=== PATIENT | female | born 1930 | race African-American/Black ===

== ENCOUNTER 2017-07-16 18:57 | Observation (INO) | payer OTHER ==
[2017-07-16] MEDS ORDERED: METOPROLOL TARTRATE 5 MG/5 ML INJ IV ONE ×2 (20:09→22:04)
[2017-07-16 20:17] LABS: Absolute Lymphocytes (CBC) 2.2 K/uL (0.7-4.9); Absolute Monocytes 0.4 K/uL (0.1-1.3); Absolute Neutrophil 2.9 K/uL (1.8-8.0); Basophils % 0.8 % (0-1.3); Eosinophils % 1.9 % (0-4.4); Hematocrit 39.4 % (36.0-45.0); Lymphocytes % 38.6 % (15.3-44.8); MCH 31.2 pg (27.0-35.0); MCV 90.9 fL (80-100); MPV 7.7 fL (7.6-11.3); Monocytes % 7.6 % (3.3-12.3); RBC Red Blood Cell Count 4.33 M/uL (3.86-4.86)
--- NOTE | 2017-07-16 20:23 | RAD REPORT ---
EXAM DESCRIPTION: Yoana Single View07/16/2017 8:03 pm CLINICAL HISTORY: Chest pain/technique cardia COMPARISON: no December 2016 FINDINGS: The lungs appear clear of acute infiltrate. The heart is mildly to moderately enlarged IMPRESSION: No acute abnormalities displayed
[2017-07-16 20:29] LABS: Potassium 3.7 mEq/L (3.6-5.0)
[2017-07-16 20:30] LABS: Magnesium 2.1 mg/dL (1.8-2.5)
[2017-07-16 20:36] LABS: Protime INR 1.07
[2017-07-16] MEDS ORDERED: ONDANSETRON 4 MG/2 ML VIAL IV PRN (20:47)
[2017-07-16] MEDS ORDERED: ACETAMINOPHEN 500 MG TAB PO PRN (20:47)
[2017-07-16] MEDS ORDERED: MORPHINE 2 MG/ML SYR IV PRN (20:47)
[2017-07-16] MEDS ORDERED: METOPROLOL TARTRATE 5 MG/5 ML INJ IV PRN (20:47)
[2017-07-16] MEDS ORDERED: METOPROLOL TAR 50 MG TAB PO SCH (21:00)
--- NOTE | 2017-07-16 21:41 | EDPHYS ---
Physician Documentation [facility] Name: Abida Arana Age: 86 yrs Sex: Female : 1930 Arrival Date: 07/16/2017 Time: 18:59 Bed 24 Private MD: ED Physician Derrell Cristina Historical: - Allergies: 07/16 19:03 Codeine; mb3 19:03 Sulfa (Sulfonamide Antibiotics); mb3 - PMHx: 19:03 Hypertension; Atrial Fib; Arthritis; mb3 - Immunization history:: Adult Immunizations up to date. - Social history:: Smoking status: Patient/guardian denies using tobacco. - Ebola Screening: : Patient denies exposure to infectious person Patient denies travel to an Ebola-affected area in the 21 days before illness onset No symptoms or risks identified at this time. Vital Signs: 19:12 BP 120 / 75; Pulse 128; Resp 18; Temp 98.6(O); Pulse Ox 99% on R/A; Weight 56.7 kg; mb3 Height 5 ft. 1 in. (154.94 cm); Pain 0/10; 20:23 BP 124 / 92; Pulse 113; Resp 18; Pulse Ox 98% on R/A; mb3 21:05 BP 137 / 85; Pulse 114; Resp 18; Pulse Ox 97% on R/A; Pain 0/10; mb3 19:12 Body Mass Index 23.62 (56.70 kg, 154.94 cm) mb3 MDM: 19:36 Patient medically screened. 07/16 19:38 Order name: Basic Metabolic Panel; Complete Time: 20:38 07/16 19:38 Order name: BNP 07/16 19:38 Order name: CBC with Diff; Complete Time: 20:38 07/16 19:38 Order name: Magnesium; Complete Time: 20:38 07/16 19:38 Order name: PT-INR 07/16 19:38 Order name: Troponin (emerg Dept Use Only); Complete Time: 20:38 07/16 19:38 Order name: XRAY Chest (1 view); Complete Time: 20:38 07/16 19:38 Order name: EKG; Complete Time: 19:39 07/16 19:47 Order name: Urine Dipstick--Ancillary (enter results) [facility] 07/16 20:55 Order name: CONS Pharmacy Consult [facility] 07/16 20:55 Order name: Troponin I [facility] 07/16 20:55 Order name: Troponin I [facility] 07/16 19:38 Order name: Cardiac monitoring; Complete Time: 19:40 07/16 19:38 Order name: EKG - Nurse/Tech; Complete Time: 19:39 07/16 19:38 Order name: IV Saline Lock; Complete Time: 20:16 07/16 19:38 Order name: Labs collected and sent; Complete Time: 20:16 07/16 19:38 Order name: O2 Per Protocol; Complete Time: 19:39 07/16 19:38 Order name: O2 Sat Monitoring; Complete Time: 19:39 07/16 19:38 Order name: Urine Dipstick-Ancillary (obtain specimen); Complete Time: 20:19 07/16 20:55 Order name: CONS Physician Consult [facility] 07/16 20:55 Order name: EKG Electrocardiogram [facility] 07/16 20:55 Order name: EKG Electrocardiogram [facility] Administered Medications: 20:02 Drug: Lopressor 5 mg Route: IVP; Site: right antecubital; mb3 23:10 Follow up: Response: No adverse reaction mb3 22:07 Drug: Lopressor 5 mg Route: IVP; Site: right antecubital; mb3 23:10 Follow up: Response: No adverse reaction mb3 Disposition: 07/16/17 21:40 Hospitalization ordered by Aggie Garrett for Inpatient Admission. Preliminary diagnosis is Paroxysmal atrial fibrillation. - Bed requested for Telemetry/MedSurg (Inpatient). - Status is Inpatient Admission. mb3 - Condition is Stable. - Problem is an acute exacerbation. - Symptoms have improved. UTI on Admission? No Addendum: 07/24/2017 11:53 Addendum: cc: PALPITATIONS hpi: ONSET DATE OF SERVICE, NO ASSOCIATED PAIN OR SOB JUST g s AFIB ACTING UP, SENT BY HOME HEALTH. HAS BEFORE WORSENED BY NOT TAKING MEDS, HAS BEEN OUT FOR A COUPLE OF DAYS. GOT FILLED BUT HAS NOT TAKEN pmh-REVIEWED AND AGREE ROS ALL REVIEWED AND NEGATIVE PE- GEN NO DISTRESS, ALERT hEENT NO MASS NO INJURY cV-IRR IRRR NO MURMUR P - LUNGS CLEAR NO RETRACTIONS. GI-SOFT NONTENDER NO MASS MS- NO DEFORMITY + PULSES SKIN - WARM NO RASH NEURO - NO ACUTE CHANGES CN MOTOR SENSORY NORMAL, MDM: CAD, VT, AFIB, CHF STUDIES REVIEWED PLAN ADMIT MILD IMPROVEMENT. CC - 30 MINUTES ADMIT TO CLARKE. 12:01 Addendum: EKG - RATE 128 IRR/IRR INTERVALS OK, NS ST CHANGES AB EKG. g s Signatures: Dispatcher [employer] EDMS Laurie Swann RN RN Derrell Cristina MD MD Connor Guzman RN RN mb3 Corrections: (The following items were deleted from the chart) 07/16 22:03 21:40 Hospitalization Ordered by Aggie Garrett MD for Inpatient Admission. Preliminary diagnosis is Paroxysmal atrial fibrillation. Bed requested for Telemetry/MedSurg (Inpatient). Status is Inpatient Admission. Condition is Stable. Problem is an acute exacerbation. Symptoms have improved. UTI on Admission? No. 23:14 22:03 07/16/2017 21:40 Hospitalization Ordered by Aggie Garrett MD for Inpatient mb3 Admission. Preliminary diagnosis is Paroxysmal atrial fibrillation. Bed requested for Telemetry/MedSurg (Inpatient). Status is Inpatient Admission. Condition is Stable. Problem is an acute exacerbation. Symptoms have improved. UTI on Admission? No.
--- NOTE | 2017-07-16 21:41 | ER ---
Nurse's Notes [facility] Name: Abida Arana Age: 86 yrs Sex: Female : 1930 Arrival Date: 07/16/2017 Time: 18:59 Bed 24 Private MD: Diagnosis: Paroxysmal atrial fibrillation Presentation: 07/16 19:00 Presenting complaint: Patient states: Was told by physical therapy that she had high mb3 heart rate so figured she should come up and get checked out. No c/o pain or discomfort. History of afib and has been out of her medication for 3 days. Just got it refilled today. Transition of care: patient was not received from another setting of care. Onset of symptoms is unknown. Risk Assessment: Do you want to hurt yourself or someone else? Patient reports no desire to harm self or others. Initial Sepsis Screen: Does the patient meet any 2 criteria? No. Patient's initial sepsis screen is negative. Does the patient have a suspected source of infection? No. Patient's initial sepsis screen is negative. Care prior to arrival: None. 19:00 Method Of Arrival: EMS: [facility] mb3 19:00 Acuity: MEGAN 3 mb3 Triage Assessment: 19:12 General: Appears in no apparent distress. comfortable, well groomed, Behavior is calm, mb3 cooperative, appropriate for age. Pain: Denies pain. EENT: No deficits noted. No signs and/or symptoms were reported regarding the EENT system. Neuro: No deficits noted. Level of Consciousness is awake, alert, obeys commands, Oriented to person, place, time, situation. Cardiovascular: Reports None Denies chest pain, Heart tones present Capillary refill < 3 seconds Pulses are palpable in right radial artery, right dorsalis pedis artery, left radial artery and left dorsalis pedis artery Rhythm is atrial fibrillation with rapid ventricular response. Respiratory: No deficits noted. Airway is patent Respiratory effort is even, unlabored, Respiratory pattern is regular, symmetrical, Breath sounds are clear bilaterally. GI: No signs and/or symptoms were reported involving the gastrointestinal system. Abdomen is flat, Bowel sounds present X 4 quads. : No signs and/or symptoms were reported regarding the genitourinary system. Musculoskeletal: No signs and/or symptoms reported regarding the musculoskeletal system. Capillary refill < 3 seconds. Historical: - Allergies: 19:03 Codeine; mb3 19:03 Sulfa (Sulfonamide Antibiotics); mb3 - PMHx: 19:03 Hypertension; Atrial Fib; Arthritis; mb3 - Immunization history:: Adult Immunizations up to date. - Social history:: Smoking status: Patient/guardian denies using tobacco. - Ebola Screening: : Patient denies exposure to infectious person Patient denies travel to an Ebola-affected area in the 21 days before illness onset No symptoms or risks identified at this time. Screenin:18 Abuse screen: Denies threats or abuse. Nutritional screening: No deficits noted. mb3 Tuberculosis screening: No symptoms or risk factors identified. Fall Risk None identified. Assessment: 19:18 Reassessment: see triage assessment. mb3 21:09 Reassessment: Patient appears in no apparent distress at this time. No changes from mb3 previously documented assessment. Patient and/or family updated on plan of care and expected duration. Pain level reassessed. Patient is alert, oriented x 3, equal unlabored respirations, skin warm/dry/pink. Patient denies pain at this time. Vital Signs: 19:12 BP 120 / 75; Pulse 128; Resp 18; Temp 98.6(O); Pulse Ox 99% on R/A; Weight 56.7 kg; mb3 Height 5 ft. 1 in. (154.94 cm); Pain 0/10; 20:23 BP 124 / 92; Pulse 113; Resp 18; Pulse Ox 98% on R/A; mb3 21:05 BP 137 / 85; Pulse 114; Resp 18; Pulse Ox 97% on R/A; Pain 0/10; mb3 19:12 Body Mass Index 23.62 (56.70 kg, 154.94 cm) mb3 ED Course: 18:59 Patient arrived in ED. mb3 19:00 Connor Guzman, RN is Primary Nurse. mb3 19:02 Triage completed. mb3 19:23 Derrell Cristina MD is Attending Physician. gs 19:32 EKG done, by ED staff, reviewed by Derrell Cristina MD. bb 20:01 XRAY Chest (1 view) In Process Unspecified. EDMS 20:19 Inserted saline lock: 22 gauge in right antecubital area, using aseptic technique. mb3 Blood collected. 20:20 Allergy band placed. occupational therapist home based on. Pulse ox on. NIBP on. Door closed. Diet: mb3 Patient given snack. Patient given juice. Patient given water. 21:39 Aggie Garrett MD is Hospitalizing Provider. gs 22:08 Arm band placed on right wrist. mb3 23:10 No provider procedures requiring assistance completed. Patient admitted, IV remains in mb3 place. Administered Medications: 20:02 Drug: Lopressor 5 mg Route: IVP; Site: right antecubital; mb3 23:10 Follow up: Response: No adverse reaction mb3 22:07 Drug: Lopressor 5 mg Route: IVP; Site: right antecubital; mb3 23:10 Follow up: Response: No adverse reaction mb3 Outcome: 21:40 Decision to Hospitalize by Provider. gs 23:11 Admitted to Tele accompanied by tech, family with patient, via stretcher, room 406, mb3 with chart, Report called to Rosalie Jin RN at 2237; SBAR used, all questions answered. 23:11 Condition: stable 23:11 Instructed on the need for admit. 23:14 Patient left the ED. mb3 Signatures: Dispatcher [employer] EDRenita Terry, RN RN Derrell Potter MD MD gs Barnett, Mark, RN RN mb3
[2017-07-16 22:34] LABS: Urine Blood NEGATIVE (NEG); Urine Glucose NEGATIVE (NEG); Urine Protein NEGATIVE (NEG); Urine Specific Gravity 1.025 (1.005-1.030); Urine pH 5.5 (5.0-7.0)
[2017-07-16] MEDS: NA CHLORIDE 0.9% 1,000 ML IV SCH (23:57)
[2017-07-17 00:34] VITALS: BMI 22.4
[2017-07-17] MEDS: ENOXAPARIN 60 MG/0.6 ML SQ SCH ×2 (01:01→09:00)
[2017-07-17] MEDS: METOPROLOL TARTRATE 5 MG/5 ML INJ IV SCH ×3 (02:00→02:10)
[2017-07-17] MEDS ORDERED: CETIRIZINE HCL 5 MG TABLET PO PRN (06:05)
[2017-07-17 06:30] LABS: Absolute Lymphocytes (CBC) 2.2 K/uL (0.7-4.9); Absolute Monocytes 0.4 K/uL (0.1-1.3); Absolute Neutrophil 2.5 K/uL (1.8-8.0); Basophils % 0.9 % (0-1.3); Eosinophils % 1.9 % (0-4.4); Hematocrit 36.3 % (36.0-45.0); Lymphocytes % 42.4 % (15.3-44.8); MCH 30.5 pg (27.0-35.0); MPV 8.5 fL (7.6-11.3); Monocytes % 7.6 % (3.3-12.3); RBC Red Blood Cell Count 3.99 M/uL (3.86-4.86)
--- NOTE | 2017-07-17 06:55 | EKG ---
Test Date: 2017-07-16 Test Time: 19:28:39 Overnight Babysitter: REJI MEASUREMENT RESULTS: Intervals: Rate: 107 TN: QRSD: 74 QT: 320 QTc: 427 [place]: P: TN: QRS: 50 T: -10 INTERPRETIVE STATEMENTS: Atrial fibrillation with rapid ventricular response Abnormal QRS-T angle, consider primary T wave abnormality Abnormal ECG Compared to ECG 03/06/2015 23:49:42 T-wave abnormality now present Sinus rhythm no longer present Electronically Signed On 07-17-17 06:55:06 CDT by Manjinder Jesus
[2017-07-17] MEDS: METOPROLOL TAR 50 MG TAB PO SCH ×2 (07:32→09:00)
[2017-07-17] MEDS ORDERED: Morphine 2 MG/2 ML SYR IV PRN (07:49)
[2017-07-17] MEDS ORDERED: MAGNESIUM OXIDE 400 MG TAB PO SCH (09:00)
[2017-07-17] MEDS ORDERED: AMLODIPINE 10 MG TAB PO SCH (09:00)
[2017-07-17] MEDS ORDERED: CARVEDILOL 12.5 MG TAB PO SCH (09:00)
[2017-07-17] MEDS ORDERED: POTASSIUM CL SA 10 MEQ TAB PO SCH (09:00)
--- NOTE | 2017-07-17 09:03 | P.HP ---
Certification for Inpatient Patient admitted to: Inpatient With expected LOS: >2 Midnights Patient will require the following post-hospital care: None Practitioner: I am a practitioner with admitting privileges, knowledge of patient current condition, hospital course, and medical plan of care. Services: Services provided to patient in accordance with Admission requirements found in Title 42 Section 412.3 of the Code of Federal Regulations Patient History Date of Service: 07/16/17 Reason for admission: Atrial fib patient with rapid ventricular response History of Present Illness: Patient is an 86-year-old female came into the hospital with shortness of breath. Patient was found have atrial fibrillation with rapid ventricular response. Patient has not been taking her medicines for the last 2-3 days since she was feeling well. She sees Cardiology, Dr. Ruiz, in [place], [place]. She has been following up at least once a year. States she was found have atrial fibrillation and has been put on medication. She does not know the name of the medicine but she has not taken it for the last few days. At this time will go ahead and resume her medications and start her on anti coagulation with Eliquis. Her rate is better controlled. She should be stable for discharge in the morning. Will discuss with our Cardiology & get an echocardiogram prior to discharge. Allergies codeine [Codeine] Adverse Reaction (Intermediate, Verified 11/29/11 16:23) NAUSEA/DIZZY Sulfa (Sulfonamide Antibiotics) [Sulfa(Sulfonamide Antibiotics)] Adverse Reaction (Intermediate, Verified 11/29/11 16:24) NAUSEA/DIZZY codeine Allergy (Uncoded 01/31/14 23:12) Unknown SULFA (SULFONAMIDES) Allergy (Uncoded 01/31/14 23:12) Unknown Home Medications: Magnesium Oxide [Mag 0X*] 400 mg PO DAILY 01/30/14 Valsartan/Hydrochlorothiazide [Valsartan-Hctz 320-25 mg Tab] 1 each PO DAILY 10/06 Amlodipine Besylate 10 mg PO DAILY 07/17/17 Carvedilol [Coreg] 12.5 mg PO BID 07/17/17 Cetirizine HCl [Zyrtec] 10 mg PO DAILYPRN PRN 07/17/17 Hydralazine [Apresoline*] 50 mg PO TID 07/17/17 Potassium Chloride [Klor-Con Sprinkle] 2 cap PO DAILY 07/17/17 Ranolazine [Ranexa] 500 mg PO BID 07/17/17 - Past Medical/Surgical History Has patient received pneumonia vaccine in the past: No Diabetic: Yes -: borderline diabetic -: Afib -: hypertension -: Arthritis -: Hand sx left hand x 2 -: tubal ligation -: D&C -: hemmorhoid sx - Family History Mother Medical History: Hypertension, Kidney disease Father Medical History: Heart disease, Kidney disease, Other (see notes) Notes: prostrate problems - Social History Smoking Status: Former smoker Alcohol use: No CD- Drugs: No Caffeine use: No Place of Residence: Home Review of Systems 10-point ROS is otherwise unremarkable Physical Examination - Vital Signs Temperature: 98.5 F Blood Pressure: 113/74 Pulse: 108 Respirations: 18 Pulse Ox (%): 96 - Physical Exam General: Alert, In no apparent distress, Oriented x3 HEENT: Atraumatic, PERRLA, Mucous membr. moist/pink, EOMI, Sclerae nonicteric Neck: Supple, 2+ carotid pulse no bruit, No LAD, Without JVD or thyroid abnormality Respiratory: Clear to auscultation bilaterally, Normal air movement Cardiovascular: Normal S1 S2, No murmurs, Irregular heart rate/rhythm Gastrointestinal: Normal bowel sounds, Soft and benign, Non-distended, No tenderness Musculoskeletal: No clubbing, No swelling, No tenderness Integumentary: No rashes Neurological: Normal gait, Normal speech, Normal strength at 5/5 x4 extr, Normal tone, Sensation intact, Cranial nerves 3-12 intact, Normal affect Lymphatics: No axilla or inguinal lymphadenopathy - Studies Laboratory Data (last 24 hrs) 07/16/17 20:03: PT 12.6 H, INR 1.07 07/16/17 20:03: WBC 5.7, Hgb 13.5, Hct 39.4, Plt Count 215 07/16/17 20:03: B-Natriuretic Peptide 598 H 07/16/17 20:03: Sodium 140, Potassium 3.7, BUN 25 H, Creatinine 1.01 H, Glucose 116, Magnesium 2.1 Assessment & Plan - Problems (Diagnosis) (1) Atrial fibrillation with RVR Current Visit: Yes Status: Acute (2) Shortness of breath Current Visit: Yes Status: Acute (3) Chest pain Onset Date: 04/04/14 Current Visit: No Status: Acute (4) Diabetes mellitus Onset Date: 04/04/14 Current Visit: No Status: Acute (5) Hypertension Onset Date: 04/04/14 Current Visit: No Status: Acute - Plan Plan: 1. Continue medication for rate control 2. Gentle hydration 3. Anti coagulation 4. Echocardiogram 5. Cardiology consultation 6. Strict blood sugar and blood pressure control 7. Monitor labs closely and check thyroid studies 8. GI and DVT prophylaxis - Advance Directives Does patient have a Living Will: No Does patient have a Durable POA for Healthcare: No - Code Status/Comfort Care Code Status Assessed: Yes Code Status: Full Code Critical Care: No Time Spent Managing PTS Care (In Minutes): 50
[2017-07-17] MEDS: NA CHLORIDE 0.9% 1,000 ML IV SCH (10:20)
[2017-07-17 11:55] VITALS: BP 134/74; TEMP 98.6
--- NOTE | 2017-07-17 12:20 | CON ---
Date of Consultation: 07/17/2017 The patient was admitted to Dr. Garrett's service on 07/16/2017. I saw the patient on 07/17/2017. Reason For Consultation: Atrial fibrillation. History Of Present Illness: Ms. Arana is an 86-year-old black woman, who has no past cardiac histor y as far as we know. She states that she has been told to take a blood thinner in the past that is a spirin by Dr. Ruiz. So, she may have had some irregular heartbeat before, but she does not recall that. She was noted during physical therapy as an outpatient to have atrial fibrillation, asymptoma tic, brought to the emergency room. Denied PND, orthopnea, pedal edema, palpitations, or syncope. D enied any chest pain. She stated that she has not taken her medication for 3 days that includes a be ta-juwan. Allergies: SHE IS ALLERGIC TO CODEINE AND SULFA. Review of Systems: Negative. Social History: Negative. Family History: Negative. Medications: At home include Coreg, Norvasc, magnesium, Zyrtec, hydralazine, Ranexa, potassium, vals luis, hydrochlorothiazide. Past Medical History: Includes hypertension, possible coronary artery disease, and possible atrial f ibrillation. Physical Examination: General: Very pleasant, alert, oriented x3. No complaint. Vital Signs: Stable. Atrial fibrillation at a rate of 100. HEENT: Negative. Neck: Supple with no bruit. Chest: Clear. Cardiac exam: Revealed atrial fibrillation. Abdomen: Benign. Extremities: Revealed no clubbing, cyanosis, or edema. Diagnostic Data: Included troponin 0.11, BNP 598, otherwise negative. EKG showed atrial fibrillatio n. Chest x-ray is negative. Impression And Plan: Atrial fibrillation, possibly paroxysmal. I think that may have been secondary to stopping the beta-juwan for 3 days. I will resume Coreg 25 b.i.d. Continue the rest of the me dication. Echocardiogram is pending. The patient may be a good candidate for Eliquis or Xarelto, I will leave that up to Dr. Garrett. I am not concerned about elevation of troponin and BNP secondary to atrial fibrillation. Her blood pressure is well controlled. She is not having any symptoms from ana st pain standpoint. We will see what the echocardiogram shows, but she can go home whenever it is ok ay with Dr. Garrett on a higher dose of Coreg and an anticoagulant and no aspirin. She will follow up w alec Ruiz. MICHA/CLAYTON Voice ID: [id number] Report ID: [id number]
[2017-07-17 13:19] VITALS: O2SAT 97
--- NOTE | 2017-07-17 17:39 | ECHO ---
HEIGHT: 5 ft 2 in WEIGHT: 122 lb 9.6 oz DATE OF STUDY: 07/17/[address]: Manjinder Jesus MD 2-DIMENSIONAL: YES M.MODE: YES DOPPLER: YES COLOR FLOW: YES TDS: PORTABLE: DEFINITY: BUBBLE STUDY: DIAGNOSIS: ATRIAL FIBRILLATION CARDIAC HISTORY: CATHERIZATION: NO SURGERY: NO PROSTHETIC VALVE: NO PACEMAKER: NO MEASUREMENTS (cm) DIASTOLIC (NORMALS) SYSTOLIC (NORMALS) IVSd 1.2 (0.6-1.2) LA Diam 3.2 (1.9-4.0) LVEF 79% LVIDd 3.6 (3.5-5.7) LVIDs 1.9 (2.0-3.5) %FS 47% LVPWd 1.4 (0.6-1.2) Ao Diam 2.5 (2.0-3.7) 2 DIMENSIONAL ASSESSMENT: RIGHT ATRIUM: NORMAL LEFT ATRIUM: NORMAL RIGHT VENTRICLE: NORMAL LEFT VENTRICLE: LEFT VENTRICULAR HYPERTROPHY TRICUSPID VALVE: NORMAL MITRAL VALVE: MITRAL ANNULAR CALCIFICATION PULMONIC VALVE: NORMAL AORTIC VALVE: STENOTIC PERICARDIAL EFFUSION: NONE AORTIC ROOT: NORMAL LEFT VENTRICULAR WALL MOTION: NORMAL DOPPLER/COLOR FLOW: MILD AORTIC STENOSIS. AREA 1.8 CENTIMETERS SQUARED. MILD TRICUSPID REGURGITATION. COMMENTS: MILD AORTIC STENOSIS. AREA 1.8 CENTIMETERS SQUARED. MILD TRICUSPID REGURGITATION. NORMAL RIGHT VENTRICULAR SYSTOLIC PRESSURE. LEFT VENTRICULAR HYPERTROPHY. NORMAL EJECTION FRACTION. MITRAL ANNULAR CALCIFICATION. TECHNOLOGIST: ROBERT CHINO
--- NOTE | 2017-07-17 17:39 | EKG ---
Test Date: 2017-07-17 Test Time: 08:38:54 Lyric Writer: BOBBY MEASUREMENT RESULTS: Intervals: Rate: 109 CO: QRSD: 72 QT: 320 QTc: 430 [place]: P: CO: QRS: 57 T: 38 INTERPRETIVE STATEMENTS: Atrial fibrillation with rapid ventricular response with premature ventricular or aberrantly conducted complexes Abnormal ECG Compared to ECG 07/16/2017 19:28:39 Ventricular premature complex(es) now present T-wave abnormality no longer present Electronically Signed On 07-17-17 17:37:01 CDT by Manjinder Jesus
--- NOTE | 2017-07-18 13:58 | P.DS ---
Discharge Date: 07/17/17 Disposition: ROUTINE DISCHARGE Discharge Condition: GOOD Reason for Admission: Atrial fib patient with rapid ventricular response Consultations: Cardiology - Problems (1) Atrial fibrillation with RVR Onset Date: 07/17/17 Status: Acute (2) Shortness of breath Onset Date: 07/17/17 Status: Acute (3) Chest pain Onset Date: 07/17/17 Status: Acute (4) Diabetes mellitus Onset Date: 07/17/17 Status: Acute (5) Hypertension Onset Date: 07/17/17 Status: Acute Brief History of Present Illness: Patient is an 86-year-old female came into the hospital with shortness of breath. Patient was found have atrial fibrillation with rapid ventricular response. Patient has not been taking her medicines for the last 2-3 days since she was feeling well. She sees Cardiology, Dr. Ruiz, in [place], [place]. She has been following up at least once a year. States she was found have atrial fibrillation and has been put on medication. She does not know the name of the medicine but she has not taken it for the last few days. At this time will go ahead and resume her medications and start her on anti coagulation with Eliquis. Her rate is better controlled. She should be stable for discharge in the morning. Will discuss with our Cardiology & get an echocardiogram prior to discharge. Hospital Course: Patient was started on beta-juwan and anticoagulation. Patient's clinical symptoms have improved. At this time patient is stable for discharge home with outpatient follow-up. Vital Signs/Physical Exam: Temp Pulse Resp BP Pulse Ox 98.6 F 74 18 134/74 97 07/17/17 11:54 07/17/17 11:54 07/17/17 11:54 07/17/17 11:54 07/17/17 11:54 General: Alert, In no apparent distress Respiratory: Clear to auscultation bilaterally, Normal air movement Cardiovascular: No murmurs, Irregular heart rate/rhythm Laboratory Data at Discharge: WBC 5.3 K/uL (4.3-10.9) 07/17/17 05:35 Hgb 12.2 g/dL (12.0-15.0) 07/17/17 05:35 Hct 36.3 % (36.0-45.0) 07/17/17 05:35 Plt Count 215 K/uL (152-406) 07/17/17 05:35 PT 12.6 SECONDS (9.5-12.5) H 07/16/17 20:03 INR 1.07 07/16/17 20:03 Sodium 140 mEq/L (135-145) 07/16/17 20:03 Potassium 3.7 mEq/L (3.6-5.0) 07/16/17 20:03 BUN 25 mg/dL (6-20) H 07/16/17 20:03 Creatinine 1.01 mg/dL (0.44-1.00) H 07/16/17 20:03 Glucose 116 mg/dL (65-120) 07/16/17 20:03 Magnesium 2.1 mg/dL (1.8-2.5) 07/16/17 20:03 Troponin I 0.14 ng/mL (<0.03) H 07/16/17 23:23 B-Natriuretic Peptide 598 pg/ml (<=100) H 07/16/17 20:03 Home Medications: Magnesium Oxide [Mag 0X*] 400 mg PO DAILY 01/30/14 Valsartan/Hydrochlorothiazide [Valsartan-Hctz 320-25 mg Tab] 1 each PO DAILY 10/06 Amlodipine Besylate 10 mg PO DAILY 07/17/17 Apixaban [Eliquis] 2.5 mg PO BID #60 tablet 07/17/17 Cetirizine HCl [Zyrtec*] 10 mg PO DAILYPRN PRN 07/17/17 Metoprolol Tartrate [Lopressor*] 50 mg PO BID #60 tab 07/17/17 Potassium Chloride [Klor-Con Sprinkle] 2 cap PO DAILY 07/17/17 Ranolazine [Ranexa] 500 mg PO BID 07/17/17 New Medications: Apixaban [Eliquis] 2.5 mg PO BID #60 tablet Metoprolol Tartrate [Lopressor*] 50 mg PO BID #60 tab Patient Discharge Instructions: OK TO DC IV AND DC HOME. FOLLOW-UP WITH PRIMARY CARE PROVIDER IN 1-2 WEEKS. FOLLOW-UP WITH CARDIOLOGY IN 1-2 WEEKS. RETURN TO THE ER IF symptoms worsens. CALL or TEXT DR. MIR AT [phone] IF ANY QUESTIONS REGARDING HOSPITAL STAY. PLEASE CALL THE FLOOR AT [phone] IF ANY MEDICATION OR NURSING QUESTIONS. Patient is advised to stop coreg Diet: AHA Activity: Fall precautions Time spent managing pt's care (in minutes): 30
== END 2017-07-17 12:36 | disposition home or self-care (01) ==
LOC: ER 18:57 → INTOOBSV 20:53 → ERHOLD 20:53 → 4TH 22:41
PROVIDERS: ADMIT Hospitalist; ATTEND Family Medicine
DX: I48.91 Unspecified atrial fibrillation (principal); E11.9 Type 2 diabetes mellitus without complications; R07.9 Chest pain, unspecified; I10 Essential (primary) hypertension; Z87.891 Personal history of nicotine dependence
CPT/HCPCS: 36415; 71045; 80048; 81003; 83735; 83880; 84484 ×2; 85025 ×2; 85610; 93005 ×2; 93306; 96374; 99285; G0378 ×2; J1650; J7030; J2270

== ENCOUNTER 2017-09-15 14:26 | Emergency (ER) | payer OTHER ==
[2017-09-15 15:25] LABS: Absolute Lymphocytes (CBC) 1.7 K/uL (0.7-4.9); Absolute Monocytes 0.5 K/uL (0.1-1.3); Absolute Neutrophil 2.9 K/uL (1.8-8.0); Basophils % 0.8 % (0-1.3); Eosinophils % 1.4 % (0-4.4); Hematocrit 39.6 % (36.0-45.0); Lymphocytes % 33.3 % (15.3-44.8); MCH 31.5 pg (27.0-35.0); MPV 8.4 fL (7.6-11.3); Monocytes % 8.9 % (3.3-12.3)
[2017-09-15] MEDS ORDERED: NA CHLORIDE 0.9% 500 ML ONE (15:34)
--- NOTE | 2017-09-15 15:37 | RAD REPORT ---
EXAM DESCRIPTION: RAD - Chest Single View - 09/15/2017 3:28 pm CLINICAL HISTORY: Dyspnea, tachycardia COMPARISON: July 16 TECHNIQUE: AP portable chest image was obtained 1524 hours . FINDINGS: No failure, infiltrate or mass. Lung markings are similar to the comparison study. Heart s ize is upper normal but stable. No acute vascular engorgement. Trachea is midline. No measurable pleu ral effusion and no pneumothorax. No gross bony abnormality seen. No acute aortic findings suspected. IMPRESSION: No acute cardiopulmonary process. No significant change from comparison.
[2017-09-15 15:42] LABS: Potassium 3.8 mmol/L (3.5-5.1)
[2017-09-15 16:32] LABS: Urine Bacteria <20 /HPF (<20); Urine Culture Reflex Order REFLEXED; Urine Mucus 1+ /HPF (NONE SEEN); Urine RBC <5 /HPF (NONE SEEN)
[2017-09-15 17:01] LABS: Urine Blood NEGATIVE (NEG); Urine Glucose NEGATIVE (NEG); Urine Protein 1+ (NEG)
[2017-09-15] MEDS ORDERED: Magnesium Sulfate 1gm IVPB 1 GM/50 ML BAG IV ONE (17:23)
[2017-09-15] MEDS ORDERED: POTASSIUM CL SA 10 MEQ TAB PO ONE (17:23)
[2017-09-15] MEDS ORDERED: METOPROLOL TAR 25 MG TAB ONE (17:33)
--- NOTE | 2017-09-15 17:57 | EKG ---
Test Date: 2017-09-15 Test Time: 14:49:42 Sports Manager: TABBY MEASUREMENT RESULTS: Intervals: Rate: 113 NH: QRSD: 74 QT: 328 QTc: 449 [place]: P: NH: QRS: 54 T: 21 INTERPRETIVE STATEMENTS: Atrial fibrillation with rapid ventricular response with premature ventricular or aberrantly conducted complexes Nonspecific T wave abnormality, probably digitalis effect Abnormal ECG Compared to ECG 07/17/2017 08:38:54 T-wave abnormality now present Electronically Signed On 09-15-17 17:56:36 CDT by Manjinder Jesus
--- NOTE | 2017-09-15 18:16 | EDPHYS ---
Physician Documentation [facility] Name: Abida Arana Age: 86 yrs Sex: Female : 1930 Arrival Date: 09/15/2017 Time: 14:36 Bed 15 Private MD: ED Physician Meet Ponce HPI: 09/15 16:21 This 86 yrs old Black Female presents to ER via Wheelchair with complaints of fast rn pulse. 16:21 The patient presents with a history of heart racing. Onset: The symptoms/episode rn began/occurred this morning. Duration: The patient or guardian reports a single episode, that is now resolved. Severity of symptoms: At their worst the symptoms were moderate in the emergency department the symptoms have improved. The patient has experienced similar episodes in the past. 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 Historical: - Allergies: 14:37 Codeine; aj 14:37 Sulfa (Sulfonamide Antibiotics); aj - Home Meds: 14:45 hydralazine 50 mg oral tab 1 tab three times per day [Active]; magnesium oxide 400 mg rb1 oral cap 400 mg daily [Active]; valsartan-hydrochlorothiazide 320-25 mg oral tab 1 tab once daily [Active]; potassium chloride 10 mEq oral TbER 2 tabs once daily [Active]; Eliquis 2.5 mg oral tab 1 tab 2 times per day [Active]; Ranexa 500 mg oral Tb12 1 tab 2 times per day [Active]; metoprolol tartrate 50 mg Oral tab 1 tab 2 times per day [Active]; amlodipine 10 mg tab 1 tab once daily [Active]; - PMHx: 14:37 Arthritis; Atrial Fib; Hypertension; aj - Immunization history:: Adult Immunizations up to date. - Social history:: Smoking status: Patient/guardian denies using tobacco. - Ebola Screening: : Patient negative for fever greater than or equal to 101.5 degrees Fahrenheit, and additional compatible Ebola Virus Disease symptoms Patient denies exposure to infectious person Patient denies travel to an Ebola-affected area in the 21 days before illness onset No symptoms or risks identified at this time. - Family history:: not pertinent. - Hospitalizations: : No recent hospitalization is reported. ROS: 16:21 Constitutional: Negative for fever, chills, and weight loss, Eyes: Negative for injury, rn pain, redness, and discharge, Neck: Negative for injury, pain, and swelling, Cardiovascular: Negative for chest pain, and edema, Respiratory: Negative for shortness of breath, cough, wheezing, and pleuritic chest pain, Abdomen/GI: Negative for abdominal pain, nausea, vomiting, diarrhea, and constipation, MS/Extremity: Negative for injury and deformity, Skin: Negative for injury, rash, and discoloration, Neuro: Negative for headache, weakness, numbness, tingling, and seizure. Exam: 16:21 Constitutional: This is a well developed, well nourished patient who is awake, alert, rn and in no acute distress. Head/Face: Normocephalic, atraumatic. Eyes: Pupils equal round and reactive to light, extra-ocular motions intact. Lids and lashes normal. Conjunctiva and sclera are non-icteric and not injected. Cornea within normal limits. Periorbital areas with no swelling, redness, or edema. ENT: dry MM Neck: Trachea midline, no thyromegaly or masses palpated, and no cervical lymphadenopathy. Supple, full range of motion without nuchal rigidity, or vertebral point tenderness. No Meningismus. Cardiovascular: irregular, normal rate Respiratory: Lungs have equal breath sounds bilaterally, clear to auscultation and percussion. No rales, rhonchi or wheezes noted. No increased work of breathing, no retractions or nasal flaring. Abdomen/GI: Soft, non-tender, with normal bowel sounds. No distension or tympany. No guarding or rebound. No evidence of tenderness throughout. MS/ Extremity: Pulses equal, no cyanosis. Neurovascular intact. Full, normal range of motion. Equal circumference. Neuro: Awake and alert, GCS 15, oriented to person, place, time, and situation. Cranial nerves II-XII grossly intact. Motor strength 5/5 in all extremities. Sensory grossly intact. Cerebellar exam normal. Normal gait. Vital Signs: 14:37 BP 123 / 83; Pulse 111; Resp 19; Temp 98.2; Pulse Ox 98% on R/A; Weight 56.7 kg; Height aj 5 ft. 1 in. (154.94 cm); 15:00 BP 122 / 76; Pulse 100; Resp 19; Pulse Ox 98% on R/A; Pain 0/10; rb1 16:00 BP 122 / 80; Pulse 100; Resp 12; Pulse Ox 99% on R/A; rb1 17:00 BP 132 / 82; Pulse 109; Resp 15; Pulse Ox 100% on R/A; Pain 0/10; rb1 18:00 BP 116 / 81; Pulse 101; Resp 14; Pulse Ox 99% ; rb1 18:40 BP 117 / 60; Pulse 90; Resp 20; Pulse Ox 98% on R/A; rb1 18:55 BP 117 / 60; Pulse 97; Resp 15; Pulse Ox 97% on R/A; Pain 0/10; rb1 14:37 Body Mass Index 23.62 (56.70 kg, 154.94 cm) aj MDM: 14:43 Patient medically screened. rn 16:21 ED course: states lives alone, decreased appetite because feels lonely, not drinking rn much water either. . 18:14 Differential diagnosis: arrythmia, dehydration. Data reviewed: vital signs, nurses rn notes, lab test result(s), EKG, radiologic studies, plain films, and as a result, I will discharge patient. Counseling: I had a detailed discussion with the patient and/or guardian regarding: the historical points, exam findings, and any diagnostic results supporting the discharge/admit diagnosis, lab results, radiology results, the need for outpatient follow up, to return to the emergency department if symptoms worsen or persist or if there are any questions or concerns that arise at home. Response to treatment: the patient's symptoms have markedly improved after treatment, the patient's condition has returned to base line, the patient is now symptom free, and as a result, I will discharge patient. Special discussion: I discussed with the patient/guardian in detail that at this point there is no indication for admission to the hospital. It is understood, however, that if the symptoms persist or worsen the patient needs to return immediately for re-evaluation. ED course: Pt feels much better, eating meal, HR< 100 now, will take only half of her metoprolol tonight since extra given here, is going to go home with daughter, and return precautions given and understood.. 09/15 14:52 Order name: CBC with Diff; Complete Time: 15:52 rn 09/15 14:52 Order name: Basic Metabolic Panel; Complete Time: 15:52 rn 09/15 14:52 Order name: Urine Microscopic Only; Complete Time: 17:11 rn 09/15 14:52 Order name: Troponin (emerg Dept Use Only); Complete Time: 15:52 rn 09/15 14:52 Order name: N-Terminal Pro-brain Natriuretic Peptide; Complete Time: 15:52 rn 09/15 16:33 Order name: Urine Culture EDMS 09/15 14:52 Order name: EKG; Complete Time: 14:53 rn 09/15 14:52 Order name: XRAY Chest (1 view); Complete Time: 15:52 rn 09/15 16:54 Order name: Urine Dipstick--Ancillary (enter results); Complete Time: 17:11 09/15 17:29 Order name: Diet Regular; Complete Time: 17:29 rn 09/15 14:52 Order name: IV Start; Complete Time: 16:23 rn 09/15 14:52 Order name: Urine Dipstick-Ancillary (obtain specimen); Complete Time: 16:24 rn 09/15 14:52 Order name: EKG - Nurse/Tech; Complete Time: 15:29 rn 09/15 17:35 Order name: EKG Electrocardiogram EDIA Administered Medications: 15:50 Drug: NS 0.9% 500 ml Route: IV; Rate: bolus; Site: right forearm; rb1 16:30 Follow up: IV Status: Completed infusion rb1 17:20 Drug: Potassium Chloride 20 mEq Route: PO; rb1 18:05 Follow up: Response: No adverse reaction rb1 17:20 Drug: Magnesium Sulfate 1 grams Route: IVPB; Infused Over: 1 hrs; Site: right forearm; rb1 18:28 Follow up: Response: No adverse reaction; IV Status: Completed infusion rb1 17:34 Drug: Metoprolol 25 mg Route: PO; rb1 18:04 Follow up: Response: No adverse reaction; pulse unchanged; provider notified rb1 Disposition: 09/15/17 18:15 Discharged to Home. Impression: Chronic atrial fibrillation, Dehydration. - Condition is Stable. - Discharge Instructions: Atrial Fibrillation, Dehydration, Adult. - Medication Reconciliation Form, Thank You Letter, Antibiotic Education, Prescription Opioid Use form. - Follow up: Private Physician; When: As needed; Reason: Recheck today's complaints, Re-evaluation by your physician. - Problem is new. - Symptoms have improved. Signatures: Dispatcher [employer] Shanon Mathias, RN Meet Low MD MD rn Barber, Rebecca, RN RN rb1 Corrections: (The following items were deleted from the chart) 19:07 18:15 09/15/2017 18:15 Discharged to Home. Impression: Chronic atrial fibrillation; rb1 Dehydration. Condition is Stable. Forms are Medication Reconciliation Form, Thank You Letter, Antibiotic Education, Prescription Opioid Use. Follow up: Private Physician; When: As needed; Reason: Recheck today's complaints, Re-evaluation by your physician. Problem is new. Symptoms have improved. rn
--- NOTE | 2017-09-15 18:16 | ER ---
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 Transition of aj care: patient was not received from another setting of care. Onset of symptoms was September 15, 2017. Risk Assessment: Do you want to hurt yourself or someone else? Patient reports no desire to harm self or others. Initial Sepsis Screen: Does the patient meet any 2 criteria? No. Patient's initial sepsis screen is negative. Does the patient have a suspected source of infection? No. Patient's initial sepsis screen is negative. Care prior to arrival: None. 14:36 Method Of Arrival: Wheelchair aj 14:36 Acuity: MEGAN 3 aj Triage Assessment: 14:37 General: Appears in no apparent distress. comfortable, Behavior is calm, cooperative, aj appropriate for age. Pain: Denies pain. Neuro: Level of Consciousness is awake, alert, obeys commands, Oriented to person, place, time, situation, Appropriate for age. Cardiovascular: Capillary refill < 3 seconds in bilateral fingers Patient's skin is warm and dry. Rhythm is sinus tachycardia. Respiratory: Airway is patent Respiratory effort is even, unlabored, Respiratory pattern is regular, symmetrical. Derm: Skin is intact, is healthy with good turgor, Skin is pink, warm \T\ dry. normal. Historical: - Allergies: 14:37 Codeine; aj 14:37 Sulfa (Sulfonamide Antibiotics); aj - Home Meds: 14:45 hydralazine 50 mg oral tab 1 tab three times per day [Active]; magnesium oxide 400 mg rb1 oral cap 400 mg daily [Active]; valsartan-hydrochlorothiazide 320-25 mg oral tab 1 tab once daily [Active]; potassium chloride 10 mEq oral TbER 2 tabs once daily [Active]; Eliquis 2.5 mg oral tab 1 tab 2 times per day [Active]; Ranexa 500 mg oral Tb12 1 tab 2 times per day [Active]; metoprolol tartrate 50 mg Oral tab 1 tab 2 times per day [Active]; amlodipine 10 mg tab 1 tab once daily [Active]; - PMHx: 14:37 Arthritis; Atrial Fib; Hypertension; aj - Immunization history:: Adult Immunizations up to date. - Social history:: Smoking status: Patient/guardian denies using tobacco. - Ebola Screening: : Patient negative for fever greater than or equal to 101.5 degrees Fahrenheit, and additional compatible Ebola Virus Disease symptoms Patient denies exposure to infectious person Patient denies travel to an Ebola-affected area in the 21 days before illness onset No symptoms or risks identified at this time. - Family history:: not pertinent. - Hospitalizations: : No recent hospitalization is reported. Screenin:45 Abuse screen: Denies threats or abuse. Nutritional screening: No deficits noted. rb1 Tuberculosis screening: No symptoms or risk factors identified. Fall Risk None identified. Assessment: 14:40 General: Appears in no apparent distress. comfortable, Behavior is calm, cooperative. rb1 Pain: Denies pain. Neuro: Level of Consciousness is awake, alert, obeys commands, Oriented to person, place, time, situation. Cardiovascular: Capillary refill < 3 seconds is brisk in bilateral fingers. Respiratory: Airway is patent Respiratory effort is even, unlabored, Respiratory pattern is regular, symmetrical. GI: No signs and/or symptoms were reported involving the gastrointestinal system. : No signs and/or symptoms were reported regarding the genitourinary system. Derm: Skin is dry, Skin is normal, Skin temperature is warm. 14:40 Pain: Denies pain Pain began 1 hour ago. rb1 15:38 Reassessment: Patient appears in no apparent distress at this time. Patient and/or rb1 family updated on plan of care and expected duration. Pain level reassessed. Patient is alert, oriented x 3, equal unlabored respirations, skin warm/dry/pink. Patient denies pain at this time. 16:24 Reassessment: Patient appears in no apparent distress at this time. No changes from rb1 previously documented assessment. Family at bedside. 17:23 Reassessment: Patient appears in no apparent distress at this time. Patient and/or rb1 family updated on plan of care and expected duration. Pain level reassessed. Patient is alert, oriented x 3, equal unlabored respirations, skin warm/dry/pink. 18:19 Reassessment: Patient appears in no apparent distress at this time. No changes from rb1 previously documented assessment. Discharge pending due to Magnesium infusing. Vital Signs: 14:37 BP 123 / 83; Pulse 111; Resp 19; Temp 98.2; Pulse Ox 98% on R/A; Weight 56.7 kg; Height aj 5 ft. 1 in. (154.94 cm); 15:00 BP 122 / 76; Pulse 100; Resp 19; Pulse Ox 98% on R/A; Pain 0/10; rb1 16:00 BP 122 / 80; Pulse 100; Resp 12; Pulse Ox 99% on R/A; rb1 17:00 BP 132 / 82; Pulse 109; Resp 15; Pulse Ox 100% on R/A; Pain 0/10; rb1 18:00 BP 116 / 81; Pulse 101; Resp 14; Pulse Ox 99% ; rb1 18:40 BP 117 / 60; Pulse 90; Resp 20; Pulse Ox 98% on R/A; rb1 18:55 BP 117 / 60; Pulse 97; Resp 15; Pulse Ox 97% on R/A; Pain 0/10; rb1 14:37 Body Mass Index 23.62 (56.70 kg, 154.94 cm) ED Course: 14:36 Patient arrived in ED. aj 14:37 Triage completed. aj 14:37 Arm band placed on left wrist. Patient placed in an exam room. aj 14:39 Georgette Mckenzie, RN is Primary Nurse. rb1 14:43 Meet Ponce MD is Attending Physician. rn 14:45 Patient has correct armband on for positive identification. Bed in low position. Call rb1 light in reach. Side rails up X 1. classroom monitor on. Pulse ox on. NIBP on. Warm blanket given. 14:45 Patient maintains SpO2 saturation greater than 95% on room air. rb1 14:56 EKG done, by technical sales engineer. reviewed by Meet Ponce MD. at1 15:15 Missed attempt(s): 22 gauge in right antecubital area. Labs were drawn and sent.. rb1 Bleeding controlled, band aid applied, catheter tip intact. 15:17 Radiology exam delayed due to IV insertion attempt and/or patient not having ag1 appropriate IV at this time. 15:25 X-ray completed. Portable x-ray completed in exam room. Patient tolerated procedure ag1 well. 15:25 XRAY Chest (1 view) In Process Unspecified. EDMS 15:30 Missed attempt(s): 22 gauge in right forearm. rb1 16:27 EKG done, by technical sales engineer. reviewed by Meet Ponce MD. sm3 18:55 No provider procedures requiring assistance completed. IV discontinued, intact, rb1 bleeding controlled, No redness/swelling at site. Pressure dressing applied. Administered Medications: 15:50 Drug: NS 0.9% 500 ml Route: IV; Rate: bolus; Site: right forearm; rb1 16:30 Follow up: IV Status: Completed infusion rb1 17:20 Drug: Potassium Chloride 20 mEq Route: PO; rb1 18:05 Follow up: Response: No adverse reaction rb1 17:20 Drug: Magnesium Sulfate 1 grams Route: IVPB; Infused Over: 1 hrs; Site: right forearm; rb1 18:28 Follow up: Response: No adverse reaction; IV Status: Completed infusion rb1 17:34 Drug: Metoprolol 25 mg Route: PO; rb1 18:04 Follow up: Response: No adverse reaction; pulse unchanged; provider notified rb1 Intake: Outcome: 18:15 Discharge ordered by . rn 18:55 Patient left the ED. rb1 18:55 Discharged to home ambulatory. rb1 18:55 Condition: stable 18:55 Discharge instructions given to patient, Instructed on discharge instructions, follow up and referral plans. Demonstrated understanding of instructions, follow-up care, Prescriptions given X none Addendum: 09/20/2017 16:13 Addendum: Culture Results: Positive urine culture. Phone call Attempt #1 No answer, No s s setup Certified letter sent to listed address for patient. Signatures: Dispatcher [employer] EDDE Shanon Magallon RN RN aj Nieto, Roman, MD MD rn Smirch, Shelby, RN RN ss gonzales, Amanda, quality facilitator EKG Tat1 Serenity Kaiser ag1 Georgette Mckenzie RN RN rb1 Carolin Puckett sm3 Corrections: (The following items were deleted from the chart) 09/15 16:26 16:00 BP 122 / 76; Pulse 100bpm; Resp 19bpm; Pulse Ox 98% RA; Pain 0/10; rb1 rb1 19:09 19:07 Patient left the ED. rb1 rb1
[2017-09-15 19:12] VITALS: TEMP 98.2
[2017-09-15 19:18] VITALS: BP 117/60; O2SAT 98
--- NOTE | 2017-09-16 06:49 | EKG ---
Test Date: 2017-09-15 Test Time: 16:16:42 Linking Machine Operator: DANITA MEASUREMENT RESULTS: Intervals: Rate: 101 [place]: QRSD: 78 QT: 330 QTc: 427 [place]: P: [place]: QRS: 44 T: 0 INTERPRETIVE STATEMENTS: Atrial fibrillation with rapid ventricular response with premature ventricular or aberrantly conducted complexes Nonspecific T wave abnormality, probably digitalis effect Abnormal ECG Compared to ECG 09/15/2017 14:49:42 No significant changes Electronically Signed On 09-16-17 06:48:35 CDT by Sukumar Walker
== END 2017-09-15 19:07 | disposition home or self-care (01) ==
LOC: ER 14:26
DX: E86.0 Dehydration (principal); I10 Essential (primary) hypertension; Z88.2 Allergy status to sulfonamides; Z88.5 Allergy status to narcotic agent; Z79.02 Long term (current) use of antithrombotics/antiplatelets
CPT/HCPCS: 36415; 71045; 80048; 83880; 84484; 85025; 87086; 87088; 93005 ×2; J3475; 81003; 81015; 87077; 87186; 96361; 96365; 99285

== ENCOUNTER 2018-05-31 05:04 | Inpatient (IN) | payer OTHER ==
[2018-05-31 05:23] LABS: Absolute Lymphocytes (CBC) 2.8 K/uL (0.7-4.9); Absolute Monocytes 0.8 K/uL (0.1-1.3); Absolute Neutrophil 4.7 K/uL (1.8-8.0); Basophils % 1.2 % (0-1.3); Eosinophils % 1.5 % (0-4.4); Hematocrit 41.7 % (36.0-45.0); Lymphocytes % 32.5 % (15.3-44.8); MPV 8.5 fL (7.6-11.3); Monocytes % 9.1 % (3.3-12.3); RBC Red Blood Cell Count 4.47 M/uL (3.86-4.86)
[2018-05-31] MEDS ORDERED: LABETALOL 20 MG/4ML SYRINGE IV ONE (05:25)
[2018-05-31] MEDS ORDERED: METOPROLOL TARTRATE 5 MG/5 ML INJ IV ONE ×2 (05:32→05:53)
[2018-05-31 06:03] LABS: Protime INR 1.52
[2018-05-31 06:21] LABS: ALT/SGPT 57 U/L (12-78); AST/SGOT 54 U/L (15-37); Albumin 3.1 g/dL (3.4-5.0); Alkaline Phosphatase 87 U/L (45-117); BUN Blood Urea Nitrogen 26 mg/dL (7-18); Bicarbonate 22 mmol/L (21-32); Bilirubin Direct 0.2 mg/dL (0-0.2); Bilirubin Total 0.7 mg/dL (0.2-1.0); Glucose Level 157 mg/dL (74-106); Magnesium 2.2 mg/dL (1.8-2.4); NT PRO-BNP 7232 pg/mL (<450); Potassium 4.2 mmol/L (3.5-5.1); Sodium Level 140 mmol/L (136-145); Troponin (Emerg Dept Use Only) < 0.02 ng/mL (0.0-0.045)
--- NOTE | 2018-05-31 06:54 | ER ---
Nurse's Notes [facility] Name: Abida Arana Age: 87 yrs Sex: Female : 1930 Arrival Date: 05/31/2018 Time: 05:10 Bed 4 Private MD: Diagnosis: Atrial fibrillation and flutter;Systolic (congestive) heart failure Presentation: 05/31 04:57 Presenting complaint: Patient states: that she is having shortness of breath that has fc worsened over the last week. She was told last week that she had bronchitis and was given medications which she has since completed. Denies any chest pain. Transition of care: patient was not received from another setting of care. Onset of symptoms was May 24, 2018. Risk Assessment: Do you want to hurt yourself or someone else? Patient reports no desire to harm self or others. Initial Sepsis Screen: Does the patient meet any 2 criteria? RR > 20 per min. HR > 90 bpm. Yes Does the patient have a suspected source of infection? No. Patient's initial sepsis screen is negative. Care prior to arrival: None. 04:57 Method Of Arrival: EMS: [facility] 04:57 Acuity: MEGAN 2 fc Historical: - Allergies: 05:19 Codeine; 05:19 Sulfa (Sulfonamide Antibiotics); fc - Home Meds: 05:19 Eliquis 2.5 mg Oral tab 1 tab 2 times per day [Active]; Atrovent Inhl as needed fc [Active]; metformin 500 mg Oral Tb24 1 tab once daily [Active]; metoprolol tartrate 50 mg Oral tab 1 tab 3 times per day [Active]; prednisone 10 mg Oral tab once daily [Active]; cetirizine 10 mg oral tab 1 tab once daily [Active]; Ranexa 500 mg Oral Tb12 1 tab 2 times per day [Active]; losartan-hydrochlorothiazide 50-12.5 mg oral tab 1 tab once daily [Active]; magnesium oxide 400 mg Oral cap 400 mg daily [Active]; - PMHx: 05:19 Arthritis; Atrial Fib; Hypertension; Diabetes - NIDDM; fc - Immunization history:: Last tetanus immunization: up to date Flu vaccine is not up to date. - Social history:: Smoking status: Patient/guardian denies using tobacco, Patient/guardian denies using alcohol, street drugs. - Ebola Screening: : Patient negative for fever greater than or equal to 101.5 degrees Fahrenheit, and additional compatible Ebola Virus Disease symptoms Patient denies exposure to infectious person Patient denies travel to an Ebola-affected area in the 21 days before illness onset. Screenin:57 Abuse screen: Denies threats or abuse. Nutritional screening: No deficits noted. fc Tuberculosis screening: No symptoms or risk factors identified. 05:38 Fall Risk Total Balbuena Fall Scale indicates High Risk Score (45 or more points). Fall lp1 prevention measures have been instituted. Side Rails Up X 2 As available patient and family educated on Fall Prevention Program and Strategies. Assessment: 05:15 General: Appears in no apparent distress. Behavior is appropriate for age. Pain: Denies lp1 pain. Neuro: Level of Consciousness is awake, alert, obeys commands, Oriented to person, place, situation. Cardiovascular: Denies chest pain, Patient's skin is warm and dry. Rhythm is atrial fibrillation. Respiratory: Reports shortness of breath Airway is patent Respiratory effort is even, Respiratory pattern is tachypnea Breath sounds are clear bilaterally. Onset: The symptoms/episode began/occurred gradually, the patient has mild shortness of breath. GI: No signs and/or symptoms were reported involving the gastrointestinal system. : No signs and/or symptoms were reported regarding the genitourinary system. EENT: No signs and/or symptoms were reported regarding the EENT system. Derm: Skin is fragile, is thin, Skin is dry, Skin is normal. Musculoskeletal: Circulation, motion, and sensation intact. 06:46 Reassessment: Patient appears in no apparent distress at this time. No changes from ak1 previously documented assessment. bedside commode placed in pt room for pt comfort. 07:15 Reassessment: Dr Blake called, asking about pt status. Informed of meds given and sv recent vitals. ABG ordered. 07:45 General: Appears in no apparent distress. comfortable, Behavior is calm, cooperative, sv appropriate for age. Pain: Denies pain. Neuro: Level of Consciousness is awake, alert, obeys commands, Oriented to person, place, time, situation. Respiratory: Respiratory effort is even, unlabored, Respiratory pattern is tachypnea. Derm: Skin is pink, warm \T\ dry. 07:48 Reassessment: Dr Blake called and informed of the vitals, including BP and HR. Pt is sv asymptomatic. Medication ordered. 08:40 Reassessment: Patient appears in no apparent distress at this time. No changes from sv previously documented assessment. Patient and/or family updated on plan of care and expected duration. Pain level reassessed. Patient is alert, oriented x 3, equal unlabored respirations, skin warm/dry/pink. Dr Blake informed of the updated BP and HR, no order received. Vital Signs: 04:57 BP 197 / 153; Pulse 161; Resp 22; Temp 97.9(O); Pulse Ox 100% on R/A; Weight 54.43 kg fc (R); Height 5 ft. 1 in. (154.94 cm) (R); Pain 0/10; 05:26 BP 168 / 123; Pulse 137; Resp 22; Pulse Ox 98% on 2 lpm NC; ak1 05:40 BP 153 / 127; Pulse 142; Resp 30; Pulse Ox 98% on 2 lpm NC; lp1 05:45 Pulse 136; Resp 36; Pulse Ox 100% on 2 lpm NC; ak1 06:55 BP 132 / 102; Pulse 134; Resp 30; Temp 98.; Pulse Ox 98% on 2 lpm NC; ak1 07:30 BP 181 / 148; Pulse 144; Resp 34; Pulse Ox 99% on 2 lpm NC; sv 07:40 BP 179 / 149; Pulse 139 MON; Resp 30; Pulse Ox 99% on 2 lpm NC; sv 08:26 BP 169 / 120; Pulse 134; Resp 30; Pulse Ox 99% on 2 lpm NC; iw 08:40 BP 149 / 114; Pulse 129; Resp 28; Pulse Ox 99% on 2 lpm NC; sv 04:57 Body Mass Index 22.67 (54.43 kg, 154.94 cm) fc 07:40 A fib sv ED Course: 04:57 Arm band placed on Patient placed in an exam room, on a stretcher. fc 04:57 Patient has correct armband on for positive identification. Placed in gown. Bed in low fc position. Call light in reach. Side rails up X2. biology specimen technician on. Pulse ox on. NIBP on. 04:57 No provider procedures requiring assistance completed. fc 05:10 Patient arrived in ED. fc 05:11 Derrell Cristina MD is Attending Physician. gs 05:13 Triage completed. fc 05:15 Inserted saline lock: 22 gauge in right antecubital area, using aseptic technique. lp1 Blood collected. 05:22 X-ray completed. Portable x-ray completed in exam room. Patient tolerated procedure kw well. 05:23 XRAY Chest (1 view) In Process Unspecified. EDMS 05:36 Elba Brown, RN is Primary Nurse. lp1 06:52 Jazlyn Blake MD is Hospitalizing Provider. gs 07:38 ABG drawn. by RT staff, on oxygen. sv 07:47 ABG Arterial Blood Gas Sent. sv 07:53 Primary Nurse role handed off by Elba Brown RN sv 07:53 Nanette Luevano RN is Primary Nurse. sv 08:36 Patient admitted, IV remains in place. intact. sv Administered Medications: 05:18 CANCELLED (Patient Refused): Labetalol 20 mg IVP once over 2 mins gs 05:25 Drug: Lopressor 5 mg Route: IVP; Site: right antecubital; ak1 06:44 Follow up: Response: No adverse reaction ak1 05:45 Drug: Lopressor 5 mg Route: IVP; Site: right antecubital; ak1 06:44 Follow up: Response: No adverse reaction ak1 06:53 Drug: Lasix 40 mg Route: IVP; Site: right antecubital; ak1 07:51 Follow up: Response: No adverse reaction sv 06:53 Drug: Sotalol 40 mg Route: PO; ak1 07:51 Follow up: Response: No adverse reaction sv 07:51 Drug: Sotalol 40 mg Route: PO; sv 08:30 Follow up: Response: No adverse reaction sv Outcome: 06:53 Decision to Hospitalize by Provider. gs 08:37 Admitted to ICU accompanied by nurse, accompanied by tech, family with patient, via sv stretcher, room 6, with oxygen, on monitor, with chart, Report called to Mary STANLEY 08:37 Condition: stable 08:37 Instructed on the need for admit. 08:54 Patient left the ED. sv Signatures: Dispatcher [employer] EDOH Nanette Luevano RN RN sv Chretien, Felicia, RN RN fc Williams, Irene, RN RN Araceli Au Elba Brown RN RN lp1 Arianne Claudio RN RN ak1 Derrell Cristina MD MD gs Corrections: (The following items were deleted from the chart) 05:38 05:15 Respiratory: Reports shortness of breath Airway is patent Respiratory effort is lp1 even, Respiratory pattern is tachypnea Breath sounds are clear bilaterally. lp1 07:53 07:40 BP 179 / 149; Pulse 139bpm; Monitor: A fibResp 34bpm; Pulse Ox 99% 2 lpm Nasal sv Cannula; sv
--- NOTE | 2018-05-31 06:54 | EDPHYS ---
Physician Documentation [facility] Name: Abida Arana Age: 87 yrs Sex: Female : 1930 Arrival Date: 05/31/2018 Time: 05:10 Bed 4 Private MD: ED Physician Derrell Cristina HPI: 05/31 05:16 This 87 yrs old Black Female presents to ER via EMS with complaints of Shortness Of gs Breath. 19:35 Onset: The symptoms/episode began/occurred acutely, 1 week(s) ago. Duration: The gs symptoms are continuous, and are steadily getting worse. Associated signs and symptoms: Pertinent negatives: chest pain. Severity of symptoms: At their worst the symptoms were severe in the emergency department the symptoms are unchanged. The patient has experienced similar episodes in the past, multiple times. Historical: - Allergies: 05:19 Codeine; fc 05:19 Sulfa (Sulfonamide Antibiotics); fc - Home Meds: 05:19 Eliquis 2.5 mg Oral tab 1 tab 2 times per day [Active]; Atrovent Inhl as needed fc [Active]; metformin 500 mg Oral Tb24 1 tab once daily [Active]; metoprolol tartrate 50 mg Oral tab 1 tab 3 times per day [Active]; prednisone 10 mg Oral tab once daily [Active]; cetirizine 10 mg oral tab 1 tab once daily [Active]; Ranexa 500 mg Oral Tb12 1 tab 2 times per day [Active]; losartan-hydrochlorothiazide 50-12.5 mg oral tab 1 tab once daily [Active]; magnesium oxide 400 mg Oral cap 400 mg daily [Active]; - PMHx: 05:19 Arthritis; Atrial Fib; Hypertension; Diabetes - NIDDM; fc - Immunization history:: Last tetanus immunization: up to date Flu vaccine is not up to date. - Social history:: Smoking status: Patient/guardian denies using tobacco, Patient/guardian denies using alcohol, street drugs. - Ebola Screening: : Patient negative for fever greater than or equal to 101.5 degrees Fahrenheit, and additional compatible Ebola Virus Disease symptoms Patient denies exposure to infectious person Patient denies travel to an Ebola-affected area in the 21 days before illness onset. ROS: 19:35 All other systems are negative. gs Exam: 06:41 ECG was reviewed by the Attending Physician. gs 19:35 Head/Face: Normocephalic, atraumatic. Eyes: Pupils equal round and reactive to light, gs extra-ocular motions intact. Lids and lashes normal. Conjunctiva and sclera are non-icteric and not injected. Cornea within normal limits. Periorbital areas with no swelling, redness, or edema. ENT: Nares patent. No nasal discharge, no septal abnormalities noted. Tympanic membranes are normal and external auditory canals are clear. Oropharynx with no redness, swelling, or masses, exudates, or evidence of obstruction, uvula midline. Mucous membranes moist. Neck: Trachea midline, no thyromegaly or masses palpated, and no cervical lymphadenopathy. Supple, full range of motion without nuchal rigidity, or vertebral point tenderness. No Meningismus. Chest/axilla: Normal chest wall appearance and motion. Nontender with no deformity. No lesions are appreciated. 19:35 Abdomen/GI: Soft, non-tender, with normal bowel sounds. No distension or tympany. No guarding or rebound. No evidence of tenderness throughout. Back: No spinal tenderness. No costovertebral tenderness. Full range of motion. Skin: Warm, dry with normal turgor. Normal color with no rashes, no lesions, and no evidence of cellulitis. MS/ Extremity: Pulses equal, no cyanosis. Neurovascular intact. Full, normal range of motion. Neuro: Awake and alert, GCS 15, oriented to person, place, time, and situation. Cranial nerves II-XII grossly intact. Motor strength 5/5 in all extremities. Sensory grossly intact. Cerebellar exam normal. Normal gait. 19:35 Constitutional: The patient appears alert, awake, in obvious distress, severely distressed. 19:35 Cardiovascular: Rate: tachycardic, Rhythm: irregularly irregular, Pulses: no pulse deficits are appreciated, Edema: is not appreciated. 19:35 Respiratory: mild respiratory distress is noted, Respirations: tachypnea, Breath sounds: rales, are located in both bases. Vital Signs: 04:57 BP 197 / 153; Pulse 161; Resp 22; Temp 97.9(O); Pulse Ox 100% on R/A; Weight 54.43 kg fc (R); Height 5 ft. 1 in. (154.94 cm) (R); Pain 0/10; 05:26 BP 168 / 123; Pulse 137; Resp 22; Pulse Ox 98% on 2 lpm NC; ak1 05:40 BP 153 / 127; Pulse 142; Resp 30; Pulse Ox 98% on 2 lpm NC; lp1 05:45 Pulse 136; Resp 36; Pulse Ox 100% on 2 lpm NC; ak1 06:55 BP 132 / 102; Pulse 134; Resp 30; Temp 98.; Pulse Ox 98% on 2 lpm NC; ak1 07:30 BP 181 / 148; Pulse 144; Resp 34; Pulse Ox 99% on 2 lpm NC; sv 07:40 BP 179 / 149; Pulse 139 MON; Resp 30; Pulse Ox 99% on 2 lpm NC; sv 08:26 BP 169 / 120; Pulse 134; Resp 30; Pulse Ox 99% on 2 lpm NC; iw 08:40 BP 149 / 114; Pulse 129; Resp 28; Pulse Ox 99% on 2 lpm NC; sv 04:57 Body Mass Index 22.67 (54.43 kg, 154.94 cm) fc 07:40 A fib sv MDM: 05:11 Patient medically screened. gs 19:35 Differential diagnosis: CHF exacerbation, Chronic Obstructive Pulmonary Disease gs Myocardial Infarction Pneumothorax. Data reviewed: vital signs, nurses notes, lab test result(s). Counseling: I had a detailed discussion with the patient and/or guardian regarding: the historical points, exam findings, and any diagnostic results supporting the discharge/admit diagnosis, the need for further work-up and treatment in the hospital. Response to treatment: the patient's symptoms have mildly improved after treatment, and as a result, I will admit patient. 05/31 05:12 Order name: Basic Metabolic Panel; Complete Time: 06:21 05/31 05:12 Order name: CBC with Diff; Complete Time: 06:01 05/31 05:12 Order name: LFT's; Complete Time: 06:21 05/31 05:12 Order name: Magnesium; Complete Time: 06:21 05/31 05:12 Order name: NT PRO-BNP; Complete Time: 06:21 gs 05/31 05:12 Order name: PT-INR; Complete Time: 06:21 05/31 05:12 Order name: Troponin (emerg Dept Use Only); Complete Time: 06:21 05/31 05:12 Order name: XRAY Chest (1 view) 05/31 07:27 Order name: Thyroid Stimulating Hormone EDNH 05/31 07:43 Order name: ABG Arterial Blood Gas [facility] 05/31 05:12 Order name: EKG; Complete Time: 05:12 05/31 05:12 Order name: Cardiac monitoring; Complete Time: 05:21 05/31 05:12 Order name: EKG - Nurse/Tech; Complete Time: 05:21 05/31 05:12 Order name: IV Saline Lock; Complete Time: 05:22 05/31 05:12 Order name: Labs collected and sent; Complete Time: 05:22 05/31 05:12 Order name: O2 Per Protocol; Complete Time: 05: 05/31 05:12 Order name: O2 Sat Monitoring; Complete Time: 05:22 05/31 07:27 Order name: CONS Physician Consult EDMS EC:41 Rate is 158 beats/min. Rhythm is irregularly irregular. QRS interval is normal. QT gs interval is normal. Q waves are Old. T waves are Flattened. Clinical impression: Atrial Fibrillation. Interpreted by me. Administered Medications: 05:18 CANCELLED (Patient Refused): Labetalol 20 mg IVP once over 2 mins gs 05:25 Drug: Lopressor 5 mg Route: IVP; Site: right antecubital; ak1 06:44 Follow up: Response: No adverse reaction ak1 05:45 Drug: Lopressor 5 mg Route: IVP; Site: right antecubital; ak1 06:44 Follow up: Response: No adverse reaction ak1 06:53 Drug: Lasix 40 mg Route: IVP; Site: right antecubital; ak1 07:51 Follow up: Response: No adverse reaction sv 06:53 Drug: Sotalol 40 mg Route: PO; ak1 07:51 Follow up: Response: No adverse reaction sv 07:51 Drug: Sotalol 40 mg Route: PO; sv 08:30 Follow up: Response: No adverse reaction sv Disposition: 19:35 Critical Care:. Disposition: 05/31/18 06:53 Hospitalization ordered by Jazlyn Blake for Inpatient Admission. Preliminary diagnosis are Atrial fibrillation and flutter, Systolic (congestive) heart failure. - Bed requested for Intensive Care Unit. - Status is Inpatient Admission. sv - Condition is Stable. - Problem is new. - Symptoms have improved. UTI on Admission? No Critical care time excluding procedures: 19:35 Critical care time: Bedside Care: 10 minutes, Consultation: 10 minutes, Family gs Intervention: 10 minutes. Total time: 30 minutes Signatures: Dispatcher [employer] EDMS Edilma Mireles Nanette Garcia RN RN Miriam Fontanez RN LIZETH Arianne Claudio RN RN [facility] Lynn Martínez RN RN df Starr, Gregory, MD MD Corrections: (The following items were deleted from the chart) 05:18 05:11 Labetalol 20 mg IVP once over 2 mins ordered. [facility] 07:29 06:53 Hospitalization Ordered by Jazlyn Blake MD for Inpatient Admission. Preliminary bd diagnosis is Atrial fibrillation and flutter; Systolic (congestive) heart failure. Bed requested for Telemetry/MedSurg (Inpatient). Status is Inpatient Admission. Condition is Stable. Problem is new. Symptoms have improved. UTI on Admission? No. gs 08:17 07:29 05/31/2018 06:53 Hospitalization Ordered by Jazlyn Blake MD for Inpatient df Admission. Preliminary diagnosis is Atrial fibrillation and flutter; Systolic (congestive) heart failure. Bed requested for Intensive Care Unit. Status is Inpatient Admission. Condition is Stable. Problem is new. Symptoms have improved. UTI on Admission? No. bd 08:18 08:17 05/31/2018 06:53 Hospitalization Ordered by Jazlyn Blake MD for Inpatient df Admission. Preliminary diagnosis is Atrial fibrillation and flutter; Systolic (congestive) heart failure. Bed requested for Intensive Care Unit. Status is Inpatient Admission. Condition is Stable. Problem is new. Symptoms have improved. UTI on Admission? No. df 08:54 08:18 05/31/2018 06:53 Hospitalization Ordered by Jazlyn Blake MD for Inpatient sv Admission. Preliminary diagnosis is Atrial fibrillation and flutter; Systolic (congestive) heart failure. Bed requested for Intensive Care Unit. Status is Inpatient Admission. Condition is Stable. Problem is new. Symptoms have improved. UTI on Admission? No. df
[2018-05-31] MEDS ORDERED: FUROSEMIDE 40 MG/4 ML VIAL ONE (07:00)
[2018-05-31] MEDS ORDERED: SOTALOL HCL 80 MG TAB ONE ×2 (07:00→08:01)
--- NOTE | 2018-05-31 08:28 | RAD REPORT ---
EXAM DESCRIPTION: RAD - Chest Single View - 05/31/2018 5:25 am CLINICAL HISTORY: Dyspnea, shortness of breath COMPARISON: August 2017 TECHNIQUE: AP portable chest image was obtained 0522 hours . FINDINGS: Moderate left-side and smaller right-sided pleural effusions are present. Infiltrate and/ or atelectasis present in each base. Vasculature is within normal limits. Heart size is probably norm al but is mostly obscured by the lung base findings. Interstitial markings overall are increased over baseline. No pneumothorax. No acute bony abnormality seen. No acute aortic findings suspected. IMPRESSION: Bilateral pleural effusions with lung base infiltrate and/ or atelectasis. Increased interstitial thickening or edema compared to August 2017 study. Patient shows a mixed pattern. This could be failure, bilateral pneumonia or a combination.
[2018-05-31] MEDS: INSULIN -REGULAR HUMAN 50 UNIT/0.5 ML ML SQ SCH ×4 (08:38→20:16)
[2018-05-31] MEDS ORDERED: ONDANSETRON 4 MG/2 ML VIAL IV PRN (08:38)
[2018-05-31 08:51] LABS: Arterial Blood Carboxyhemoglob 1.6 % (0-1.5); Blood Gas Oxyhemoglobin 91.7 % (94-97); Blood O2 Saturation 93.9 % (92-98.5)
[2018-05-31] MEDS ORDERED: FUROSEMIDE 40 MG/4 ML VIAL IV SCH (09:00)
[2018-05-31] MEDS: APIXABAN 2.5 MG TABLET PO SCH ×2 (11:05→20:16)
[2018-05-31] MEDS: LOSARTAN/HCTZ 50-12.5 PO SCH (11:05)
[2018-05-31] MEDS ORDERED: HYDRALAZINE HCL 20 MG/ML VIAL IV ONE ×2 (12:03→17:15)
[2018-05-31 14:39] LABS: Urine Appearance CLEAR; Urine Bilirubin NEGATIVE (NEG); Urine Blood TRACE (NEG); Urine Color YELLOW; Urine Glucose NEGATIVE (NEG); Urine Protein NEGATIVE (NEG); Urine pH 6.5 (5.0-7.0)
[2018-05-31 14:42] LABS: Urine Microscopic Reflex ORDER UMIC
[2018-05-31 14:56] LABS: Urine Bacteria <20 /HPF (<20); Urine Culture Reflex Order NOT NEEDED
--- NOTE | 2018-05-31 16:03 | CON ---
Chief Complaint: Shortness of breath. Reason For Consult: AFib. History Of Present Illness: Mrs. Arana seems to be quite confused and I think the main thing that w ent wrong is, was not taking her medicines appropriately. She cannot name her medicines or say what that for. Apparently, somebody gave her a medicine a few days ago at the [facility], she took s everal and ran out. When she was here in the hospital, her heart rate was in the 120s, rapid AFib. She has been in chronic AFib for the past several years. Takes Eliquis 2.[address] Ruiz. Heart rate control is with metoprolol. She has not had a cardioversion or other antiarrhyt hmic therapy before. The strategy has been rate control and anticoagulation. Physical Examination: General: The patient is awake. She is alert, but she is very confused, cannot remember things. She says she lives in a house alone and has some contact grandkids, I am not sure how much supervision t hey really give her. Lungs: Clear. Heart: Rate is elevated. Vital Signs: Most recent blood pressure is 170/119. Impression: We should re-establish therapy with metoprolol, not try to cardiovert her. I would not recommend giving Betapace in this case and anticoagulation with apixaban 2.5 b.i.d. as per recommenda tion. JUSTO Voice ID: [id number] Report ID: [id number]
--- NOTE | 2018-05-31 16:32 | P.HP ---
Certification for Inpatient Patient admitted to: Inpatient With expected LOS: >2 Midnights Patient will require the following post-hospital care: None Practitioner: I am a practitioner with admitting privileges, knowledge of patient current condition, hospital course, and medical plan of care. Services: Services provided to patient in accordance with Admission requirements found in Title 42 Section 412.3 of the Code of Federal Regulations Patient History Date of Service: 05/31/18 Primary Care Provider: Dr colón - Cardiology Reason for admission: afib with RVR History of Present Illness: 87 y/o F with Significant pmhx who presented to the ED with c.o Heart Palpation and SOB. Pt states for past 1 week she has been having viral illness and was seen by the [facility]. At the clinic she was prescribed Inhaler atrovent and Steroids for her viral Bronchitis. She took the medication as precribed however felt palpitation and SOB and thus presented to the ED. Pt has been poor historian and has not been able to care for self at home resulting in Medicatio non-compliance. She is seen routinely by Dr Colón in [place] for her afib. She has been on Eliquis and metoprolol for it as well. Denies any fever, chills or n.v at this time. 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 Allergies codeine [Codeine] Adverse Reaction (Intermediate, Verified 11/29/11 16:23) NAUSEA/DIZZY Sulfa (Sulfonamide Antibiotics) [Sulfa(Sulfonamide Antibiotics)] Adverse Reaction (Intermediate, Verified 11/29/11 16:24) NAUSEA/DIZZY Home Medications: Magnesium Oxide [Mag 0X*] 400 mg PO DAILY 01/30/14 Amlodipine Besylate 10 mg PO DAILY 07/17/17 Apixaban [Eliquis] 2.5 mg PO BID #60 tablet 07/17/17 Cetirizine HCl [Zyrtec*] 10 mg PO DAILYPRN PRN 07/17/17 Potassium Chloride [Klor-Con Sprinkle] 2 cap PO DAILY 07/17/17 Ranolazine [Ranexa] 500 mg PO BID 07/17/17 Losartan/Hydrochlorothiazide [Losartan-Hctz 50-12.5 mg Tab] 1 tab PO DAILY 05/31 Metformin ER [Glucophage ER*] 500 mg PO DAILY 05/31/18 Metoprolol Tartrate [Lopressor*] 50 mg PO TID 05/31/18 - Past Medical/Surgical History Has patient received pneumonia vaccine in the past: No Diabetic: Yes -: borderline diabetic -: Afib -: hypertension -: Arthritis -: Hand sx left hand x 2 -: tubal ligation -: D&C -: hemmorhoid sx - Family History Mother -: Hypertension, Kidney disease Father -: Heart disease, Kidney disease, Other (see notes) Notes: prostrate problems - Social History Smoking Status: Never smoker Alcohol use: No CD- Drugs: No Caffeine use: No Place of Residence: Home Review of Systems 10-point ROS is otherwise unremarkable Physical Examination - Vital Signs Temperature: 99.0 F Blood Pressure: 144/81 Pulse: 150 Respirations: 27 Pulse Ox (%): 98 - Physical Exam General: Alert, In no apparent distress, Oriented x2, Demented Respiratory: Clear to auscultation bilaterally, Normal air movement Cardiovascular: Normal S1 S2, Irregular heart rate/rhythm Gastrointestinal: Normal bowel sounds, No tenderness Musculoskeletal: No tenderness Integumentary: No rashes Neurological: Normal gait, Normal speech, Normal strength at 5/5 x4 extr, Normal tone, Normal affect Lymphatics: No axilla or inguinal lymphadenopathy - Studies Laboratory Data (last 24 hrs) 05/31/18 05:37: PT 17.7 H, INR 1.52 05/31/18 05:37: Sodium 140, Potassium 4.2, BUN 26 H, Creatinine 1.16, Glucose 157 H, Magnesium 2.2, Total Bilirubin 0.7, AST 54 H, ALT 57, Alkaline Phosphatase 87 05/31/18 05:10: WBC 8.5, Hgb 13.9, Hct 41.7, Plt Count 350 Assessment and Plan - Problems (Diagnosis) (1) Atrial fibrillation with RVR Onset Date: 07/17/17 Current Visit: No Status: Acute Plan: Afib with RVR with HR of 150-160 in ER -Given Sotalol x 2 in the ER for Irregular HR -Cardiology consulted. Appreciate Reccs -Restart on BB and Elquis for now -No Antiarrhythmics for now -Last ECHO in consistent with diastolic Dysfunction (2) CHF (congestive heart failure) Onset Date: 04/04/14 Current Visit: No Status: Chronic Plan: Chronic CHF with Diastolic Dysfuntion. -IV lasix 40mg x1 in the ER -Monitor UO and repeat Xray if improvement DC lasix Qualifiers: Heart failure type: diastolic Heart failure chronicity: chronic Qualified Code(s): I50.32 - Chronic diastolic (congestive) heart failure (3) Diabetes mellitus Onset Date: 07/17/17 Current Visit: No Status: Chronic Plan: ISS and Accu check Qualifiers: Diabetes mellitus type: type 2 Diabetes mellitus longterm insulin use: without longterm use Diabetes mellitus complication status: without complication Qualified Code(s): E11.9 - Type 2 diabetes mellitus without complications (4) Hypertension Onset Date: 07/17/17 Current Visit: No Status: Chronic Plan: Could be 2.2 to OTC cough Syrup vs afib -IV hydralazine x 1 in the ICU -Improvement in BP. Will monitor closely Qualifiers: Hypertension type: essential hypertension Qualified Code(s): I10 - Essential (primary) hypertension - Plan ADmit to the ICU for close monitoring for her Afib with RVR and Elevated HTN Discharge Plan: Home Plan to discharge in: 48 Hours - Advance Directives Does patient have a Living Will: No Does patient have a Durable POA for Healthcare: No - Code Status/Comfort Care Code Status Assessed: Yes Critical Care: Yes Time Spent Managing Pts Care (In Minutes): 45
[2018-05-31] MEDS ORDERED: SOTALOL HCL 80 MG TAB PO SCH (18:00)
--- NOTE | 2018-05-31 20:01 | RAD REPORT ---
EXAM DESCRIPTION: RAD - Chest Single View - 05/31/2018 7:52 pm CLINICAL HISTORY: R/O volume overload Chest pain. COMPARISON: Chest Single View dated 05/31/2018; Chest Single View dated 09/15/2017; Chest Single View d ated 07/16/2017; Chest Pa And Lat (2 Views) dated 01/20/2017 FINDINGS: Portable technique limits examination quality. Mild pulmonary edema noted. Bilateral pleural effusions are again seen, larger on the left, unchanged . The heart is moderately enlarged in size. Overall, findings appear essentially unchanged. IMPRESSION: Stable CHF versus volume overload pattern since comparative study.
[2018-05-31] MEDS ORDERED: METOPROLOL TAR 50 MG TAB PO SCH (21:00)
[2018-06-01] MEDS ORDERED: METOPROLOL TARTRATE 5 MG/5 ML INJ IV STA ×2 (01:27→06:34)
[2018-06-01 05:00] VITALS: BMI 20.3
[2018-06-01 05:32] LABS: Absolute Lymphocytes (CBC) 1.8 K/uL (0.7-4.9); Absolute Monocytes 0.7 K/uL (0.1-1.3); Absolute Neutrophil 3.5 K/uL (1.8-8.0); Basophils % 0.8 % (0-1.3); Eosinophils % 0.9 % (0-4.4); Hematocrit 41.9 % (36.0-45.0); Lymphocytes % 29.2 % (15.3-44.8); MPV 8.2 fL (7.6-11.3); Monocytes % 11.9 % (3.3-12.3); RBC Red Blood Cell Count 4.54 M/uL (3.86-4.86)
[2018-06-01 05:51] LABS: Albumin 2.8 g/dL (3.4-5.0); Bilirubin Total 0.8 mg/dL (0.2-1.0); Magnesium 2.2 mg/dL (1.8-2.4); Phosphorus 3.9 mg/dL (2.5-4.9); Protein, Total 6.3 g/dL (6.4-8.2)
[2018-06-01] MEDS: LORAZEPAM 0.5 MG TABLET PO ONE ×2 (06:36→06:45)
[2018-06-01] MEDS ORDERED: POTASSIUM CL SA 10 MEQ TAB PO ONE (07:06)
[2018-06-01] MEDS: INSULIN -REGULAR HUMAN 50 UNIT/0.5 ML ML SQ SCH ×4 (07:30→21:00)
[2018-06-01] MEDS: AMLODIPINE 10 MG TAB PO SCH (08:38)
[2018-06-01] MEDS: APIXABAN 2.5 MG TABLET PO SCH ×2 (08:39→21:40)
[2018-06-01] MEDS: METOPROLOL XL 100 MG TAB PO SCH ×2 (08:39→21:32)
[2018-06-01] MEDS: LOSARTAN/HCTZ 50-12.5 PO SCH (08:39)
--- NOTE | 2018-06-01 11:34 | EKG ---
Test Date: 2018-05-31 Test Time: 05:03:53 Recreation Therapy Director: LORI MEASUREMENT RESULTS: Intervals: Rate: 158 VT: QRSD: 54 QT: 292 QTc: 473 [place]: P: VT: QRS: 95 T: 106 INTERPRETIVE STATEMENTS: Atrial fibrillation with rapid ventricular response Rightward axis Septal infarct, age undetermined Abnormal ECG Compared to ECG 09/15/2017 16:16:42 Right-axis deviation now present Myocardial infarct finding now present Ventricular premature complex(es) no longer present T-wave abnormality no longer present Electronically Signed On 05-31-18 10:48:07 CDT by Sukumar Walker
--- NOTE | 2018-06-01 12:55 | PN ---
Ms. Arana feels fine. No chest pain or shortness of breath. Her heart rate is still in the 120s, s ometimes 130. She is in atrial fibrillation. We will increase the amount of beta-juwan she gets. I do not think this represents an acute coronary syndrome nor a reason to try and change her rhythm to sinus, but we need to get her heart rate under control, less than 100, hopefully. GABRIELA/CLAYTON Voice ID: [id number] Report ID: [id number]
--- NOTE | 2018-06-01 15:28 | P.PN ---
Subjective Date of Service: 06/01/18 Primary Care Provider: Dr colón - Cardiology Chief Complaint: afib with RVR Subjective: No C/O voiced, Tolerating diet, Improving, Doing well, Other (Rate down to 110-120) Review of Systems 10-point ROS is otherwise unremarkable Physical Examination - Vital Signs Temperature: 98.7 F Blood Pressure: 111/87 Pulse: 147 Respirations: 25 Pulse Ox (%): 98 - Physical Exam General: Alert, In no apparent distress Respiratory: Clear to auscultation bilaterally, Normal air movement Cardiovascular: Normal S1 S2, Irregular heart rate/rhythm Gastrointestinal: Normal bowel sounds, No tenderness Musculoskeletal: No tenderness Integumentary: No rashes Neurological: Normal speech, Normal tone, Normal affect Lymphatics: No axilla or inguinal lymphadenopathy - Studies Medications List Reviewed: Yes Assessment And Plan - Current Problems (Diagnosis) (1) Atrial fibrillation with RVR Onset Date: 07/17/17 Current Visit: No Status: Acute Plan: Afib with RVR with HR of 150-160 in ER -Given Sotalol x 2 in the ER for Irregular HR -Cardiology consulted. Appreciate Reccs -BB increased today and Elquis for anticoagulation -No Antiarrhythmics for now -Last ECHO in consistent with diastolic Dysfunction (2) CHF (congestive heart failure) Onset Date: 04/04/14 Current Visit: No Status: Chronic Plan: Chronic CHF with Diastolic Dysfuntion. -IV lasix 40mg x1 in the ER -Doing well. -On BB now Qualifiers: Heart failure type: diastolic Heart failure chronicity: chronic Qualified Code(s): I50.32 - Chronic diastolic (congestive) heart failure (3) Diabetes mellitus Onset Date: 07/17/17 Current Visit: No Status: Chronic Plan: ISS and Accu check Qualifiers: Diabetes mellitus type: type 2 Diabetes mellitus half-way insulin use: without half-way use Diabetes mellitus complication status: without complication Qualified Code(s): E11.9 - Type 2 diabetes mellitus without complications (4) Hypertension Onset Date: 07/17/17 Current Visit: No Status: Chronic Plan: Could be 2.2 to OTC cough Syrup vs afib -IV hydralazine x 2 in the ICU -Improvement in BP. Will monitor closely -Restarted on Home Medication Qualifiers: Hypertension type: essential hypertension Qualified Code(s): I10 - Essential (primary) hypertension - Plan Transfer the patient to the floor. Now with increased BB and decreased HR to 110 -120. Goal to be < 100. Will monitor for now Discharge Plan: Home Plan to discharge in: 48 Hours - Code Status/Comfort Care Code Status Assessed: Yes Critical Care: Yes Time Spent Managing PTS Care (In Minutes): 35
[2018-06-02 05:53] LABS: Absolute Lymphocytes (CBC) 2.6 K/uL (0.7-4.9); Absolute Monocytes 0.7 K/uL (0.1-1.3); Absolute Neutrophil 3.1 K/uL (1.8-8.0); Basophils % 1.1 % (0-1.3); Eosinophils % 1.5 % (0-4.4); Hematocrit 39.2 % (36.0-45.0); Lymphocytes % 39.5 % (15.3-44.8); MPV 7.8 fL (7.6-11.3); Monocytes % 10.9 % (3.3-12.3); RBC Red Blood Cell Count 4.23 M/uL (3.86-4.86)
[2018-06-02 06:12] LABS: Albumin 2.5 g/dL (3.4-5.0); Bilirubin Total 0.5 mg/dL (0.2-1.0); Magnesium 2.2 mg/dL (1.8-2.4); Phosphorus 3.7 mg/dL (2.5-4.9); Potassium 3.1 mmol/L (3.5-5.1); Protein, Total 5.7 g/dL (6.4-8.2)
[2018-06-02] MEDS ORDERED: POTASSIUM 25 MEQ EFFERV TAB PO ONE (06:33)
[2018-06-02] MEDS: INSULIN -REGULAR HUMAN 50 UNIT/0.5 ML ML SQ SCH ×3 (07:30→16:30)
[2018-06-02] MEDS: APIXABAN 2.5 MG TABLET PO SCH (08:47)
[2018-06-02] MEDS: METOPROLOL XL 100 MG TAB PO SCH (08:47)
[2018-06-02] MEDS: AMLODIPINE 10 MG TAB PO SCH (08:48)
[2018-06-02] MEDS: LOSARTAN/HCTZ 50-12.5 PO SCH (08:48)
[2018-06-02] MEDS ORDERED: METOPROLOL TAR 50 MG TAB PO SCH (15:10)
[2018-06-02] MEDS ORDERED: GLUCAGON 1 MG/VIAL IM PRN (15:11)
[2018-06-02] MEDS ORDERED: D50W 25 GM/50 ML SYRINGE IV PRN (15:11)
--- NOTE | 2018-06-02 17:17 | P.DS ---
Admission Date: 05/31/18 Discharge Date: 06/02/18 Primary Care Provider: Dr colón - Cardiology Disposition: ROUTINE DISCHARGE Discharge Condition: GOOD Reason for Admission: afib with RVR Consultations: Cardiology - Problems (1) Atrial fibrillation with RVR Onset Date: 07/17/17 Status: Acute (2) CHF (congestive heart failure) Onset Date: 04/04/14 Status: Chronic Qualifiers: Heart failure type: diastolic Heart failure chronicity: chronic Qualified Code(s): I50.32 - Chronic diastolic (congestive) heart failure (3) Diabetes mellitus Onset Date: 07/17/17 Status: Chronic Qualifiers: Diabetes mellitus type: type 2 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 Pt states for past 1 week she has been having viral illness and was seen by the [facility]. At the clinic she was prescribed Inhaler atrovent and Steroids for her viral Bronchitis. She took the medication as precribed however felt palpitation and SOB and thus presented to the ED. Pt has been poor historian and has not been able to care for self at home resulting in Medicatio non-compliance. She is seen routinely by Dr Colón in [place] for her afib. She has been on Eliquis and metoprolol for it as well. Denies any fever, chills or n.v at this time. 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 Hospital Course: Overall during the hospital stay patient in stable Patient was initially admitted to the hospital for AFib with RVR. Patient was given 2 doses of sotalol in the ER in an attempt to cardiovert her. Patient however was not able to be cardioverted and remain in AFib with RVR. Patient is was admitted to the ICU for further care. Cardiology was consulted. Cardiology reviewed patient case and stated that patient is chronically in atrial fibrillation and is not advisable to convert her with any anti arrhythmic medications. Cardiology recommended the patient be continued on beta -juwan that she takes at home. Patient's beta-juwan was increased however with cardiology recommendation to 100 mg b.i.d.. Patient's heart rate however still remained in 130-140 and thus it was increased to 150 mg b.i.d.. 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 Patient's heart rate remained between 1 tends to 140s while here in the hospital. Per cardiology patient can follow up with her christ[facility] tree farmer outpatient and since she is not symptomatic is stable to discharge home. If patient was returned to the ER again with similar complaints with symptomatic atrial fibrillation with RVR and attempt should be made to transfer the patient over to her cardiology at [facility] due to the chronic nature of her atrial fibrillation and continuity of care with her [facility] at [facility] Vital Signs/Physical Exam: Temp Pulse Resp BP Pulse Ox 98.1 F 143 H 18 116/78 96 06/02/18 12:00 06/02/18 15:50 06/02/18 12:00 06/02/18 15:50 06/02/18 00:00 General: Alert, In no apparent distress HEENT: Atraumatic, PERRLA, EOMI Neck: Supple, JVD not distended Respiratory: Clear to auscultation bilaterally, Normal air movement Cardiovascular: Normal S1 S2, Irregular heart rate/rhythm Gastrointestinal: Normal bowel sounds, No tenderness Musculoskeletal: No tenderness Integumentary: No rashes Neurological: Normal speech, Normal tone, Normal affect Lymphatics: No axilla or inguinal lymphadenopathy Laboratory Data at Discharge: WBC 6.5 K/uL (4.3-10.9) 06/02/18 05:34 Hgb 12.9 g/dL (12.0-15.0) 06/02/18 05:34 Hct 39.2 % (36.0-45.0) 06/02/18 05:34 Plt Count 306 K/uL (152-406) 06/02/18 05:34 PT 17.7 SECONDS (9.5-12.5) H 05/31/18 05:37 INR 1.52 05/31/18 05:37 Sodium 144 mmol/L (136-145) 06/02/18 05:34 Potassium 3.6 mmol/L (3.5-5.1) 06/02/18 13:35 BUN 20 mg/dL (7-18) H 06/02/18 05:34 Creatinine 1.00 mg/dL (0.55-1.3) 06/02/18 05:34 Glucose 111 mg/dL (74-106) H 06/02/18 05:34 Phosphorus 3.7 mg/dL (2.5-4.9) 06/02/18 05:34 Magnesium 2.2 mg/dL (1.8-2.4) 06/02/18 05:34 Total Bilirubin 0.5 mg/dL (0.2-1.0) 06/02/18 05:34 AST 16 U/L (15-37) 06/02/18 05:34 ALT 31 U/L (12-78) 06/02/18 05:34 Alkaline Phosphatase 68 U/L (45-117) 06/02/18 05:34 Home Medications: Magnesium Oxide [Mag 0X*] 400 mg PO DAILY 01/30/14 Amlodipine Besylate 10 mg PO DAILY 07/17/17 Apixaban [Eliquis *] 2.5 mg PO BID #60 tablet 07/17/17 Cetirizine HCl [Zyrtec*] 10 mg PO DAILYPRN PRN 07/17/17 Potassium Chloride [Klor-Con Sprinkle] 2 cap PO DAILY 07/17/17 Ranolazine [Ranexa] 500 mg PO BID 07/17/17 Losartan/Hydrochlorothiazide [Losartan-Hctz 50-12.5 mg Tab] 1 tab PO DAILY 05/31 Metoprolol Succinate [Toprol Xl*] 150 mg PO BID #90 tab 06/02/18 New Medications: Metoprolol Succinate [Toprol Xl*] 150 mg PO BID #90 tab Patient Discharge Instructions: Please f.u with PCP and Cardiology in 1 to 2 week post discharge. New medication. Metoprolol 150mg BID for now Diet: Regular Activity: Ad deidra Followup: Sukumar Walker MD [ACTIVE - CAN ADMIT] - 1 Week
[2018-06-02 17:52] VITALS: BP 114/80; TEMP 97; O2SAT 96
== END 2018-06-02 17:12 | disposition home or self-care (01) | DRG 309 ==
LOC: ER 05:04 → ERHOLD 07:26 → 3RD-ICU 08:33 → 2ND 06-01 17:55
PROVIDERS: ADMIT Family Medicine; ATTEND Family Medicine
DX: I48.2 Chronic atrial fibrillation (principal); I50.32 Chronic diastolic (congestive) heart failure; Z79.01 Long term (current) use of anticoagulants; I11.0 Hypertensive heart disease with heart failure; E11.9 Type 2 diabetes mellitus without complications; Z88.5 Allergy status to narcotic agent; Z88.2 Allergy status to sulfonamides; Z91.14 Patient's other noncompliance with medication regimen; M19.90 Unspecified osteoarthritis, unspecified site
CPT/HCPCS: 36415; 71045; 80048; 80053; 80076; 81003; 81015; 82805; 82962; 83735; 83880; 84100; 84132; 84443; 84484; 85025; 85610; 93005; 94760; 96374; 96375; 99285; J0360; J1940

== ENCOUNTER 2019-08-08 17:58 | Emergency (ER) | payer OTHER ==
--- NOTE | 2019-08-08 19:40 | ER ---
Nurse's Notes [facility] Name: Abida Arana Age: 88 yrs Sex: Female : 1930 Arrival Date: 08/08/2019 Time: 17:59 Bed 12 Private MD: Diagnosis: Cellulitis of finger Presentation: 08/07 18:40 Chief complaint: Patient states: thought something bit her left pinky finger, has iw gotten bigger over past week. Coronavirus screen: Proceed with normal triage. Patient denies a cough. Patient denies shortness of breath or difficulty breathing. Patient denies measured and/or subjective temperature greater than 100.4F prior to today's visit. Patient denies travel on a cruise ship or to a country the [facility] currently lists as an affected area. Patient denies contact with known and/or suspected case of COVID-19. Ebola Screen: Patient negative for fever greater than or equal to 101.5 degrees Fahrenheit, and additional compatible Ebola Virus Disease symptoms Patient denies exposure to infectious person. Patient denies travel to an Ebola-affected area in the 21 days before illness onset. No symptoms or risks identified at this time. Initial Sepsis Screen: Does the patient meet any 2 criteria? No. Patient's initial sepsis screen is negative. Does the patient have a suspected source of infection? No. Patient's initial sepsis screen is negative. Risk Assessment: Do you want to hurt yourself or someone else? Patient reports no desire to harm self or others. Onset of symptoms was August 01, 2019. 18:40 Method Of Arrival: Ambulatory iw 18:40 Acuity: MEGAN 4 iw Historical: - Allergies: 18:43 Codeine; iw 18:43 Sulfa (Sulfonamide Antibiotics); iw - Home Meds: 18:43 Atrovent Inhl as needed [Active]; cetirizine 10 mg Oral tab 1 tab once daily [Active]; iw Eliquis 2.5 mg Oral tab 1 tab 2 times per day [Active]; losartan-hydrochlorothiazide 50-12.5 mg Oral tab 1 tab once daily [Active]; magnesium oxide 400 mg Oral cap 400 mg daily [Active]; metformin 500 mg Oral Tb24 1 tab once daily [Active]; metoprolol tartrate 50 mg Oral tab 1 tab 3 times per day [Active]; prednisone 10 mg Oral tab once daily [Active]; Ranexa 500 mg Oral Tb12 1 tab 2 times per day [Active]; - PMHx: 18:43 Atrial Fib; Arthritis; Diabetes - NIDDM; Hypertension; iw - Immunization history:: Adult Immunizations up to date. - Social history:: Smoking status: . Screenin:30 Abuse screen: Denies threats or abuse. Denies injuries from another. Nutritional lp1 screening: No deficits noted. Tuberculosis screening: No symptoms or risk factors identified. Fall Risk None identified. Assessment: 19:55 General: Appears in no apparent distress. Behavior is calm, cooperative, appropriate lp1 for age. Pain: Complains of pain in dorsal aspect of middle phalanx of left little finger. Neuro: No deficits noted. Cardiovascular: Patient's skin is warm and dry. Respiratory: Respiratory effort is even, unlabored. GI: No signs and/or symptoms were reported involving the gastrointestinal system. : No signs and/or symptoms were reported regarding the genitourinary system. EENT: No signs and/or symptoms were reported regarding the EENT system. Derm: Skin is intact, Skin is dry, Skin is normal, Wound noted dorsal aspect of middle phalanx of left little finger Wound is black in color, no drainage noted. Musculoskeletal: No deficits noted. Vital Signs: 18:40 BP 130 / 78; Pulse 66; Resp 16; Temp 97.9; Pulse Ox 100% on R/A; iw ED Course: 17:59 Patient arrived in ED. bp1 18:42 Triage completed. iw 18:43 Arm band placed on. iw 19:13 Jack Spain MD is Attending Physician. tw4 19:29 Elif Shaw, RN is Primary Nurse. iw 19:30 Elba Brown, RN is Primary Nurse. lp1 19:31 Patient has correct armband on for positive identification. lp1 19:31 No provider procedures requiring assistance completed. Patient did not have IV access lp1 during this emergency room visit. Administered Medications: 19:54 Drug: Cleocin 300 mg Route: PO; lp1 19:54 Follow up: Response: Medication administered at discharge. lp1 Outcome: 19:39 Discharge ordered by . tw4 19:56 Discharged to home ambulatory. lp1 19:56 Condition: good 19:56 Discharge instructions given to patient, Instructed on discharge instructions, follow up and referral plans. medication usage, Demonstrated understanding of instructions, follow-up care, medications, Prescriptions given X 1. 19:57 Patient left the ED. lp1 Signatures: Elif Shaw RN RN iw Elba Brown RN RN lp1 Jack Spain MD MD tw4 Marielena Cox [facility]
--- NOTE | 2019-08-08 19:40 | EDPHYS ---
Physician Documentation [facility] Name: Abida Arana Age: 88 yrs Sex: Female : 1930 Arrival Date: 08/08/2019 Time: 17:59 Bed 12 Private MD: ED Physician Jack Spain HPI: 08/07 22:08 This 88 yrs old Black Female presents to ER via Ambulatory with complaints of Insect tw4 Bite. 22:08 The patient presents with cellulitis of the dorsal aspect of middle phalanx of left tw4 little finger, the patient presents with a swollen area of the dorsal aspect of middle phalanx of left little finger. Description: The affected area is small, well demarcated, tense. Onset: The symptoms/episode began/occurred 1 week(s) ago. Possible cause(s): unknown. Associated signs and symptoms: The patient has no apparent associated signs or symptoms. Modifying factors: the symptoms are alleviated by nothing, the symptoms are aggravated by nothing. The patient has not experienced similar symptoms in the past. Historical: - Allergies: 18:43 Codeine; iw 18:43 Sulfa (Sulfonamide Antibiotics); iw - Home Meds: 18:43 Atrovent Inhl as needed [Active]; cetirizine 10 mg Oral tab 1 tab once daily [Active]; iw Eliquis 2.5 mg Oral tab 1 tab 2 times per day [Active]; losartan-hydrochlorothiazide 50-12.5 mg Oral tab 1 tab once daily [Active]; magnesium oxide 400 mg Oral cap 400 mg daily [Active]; metformin 500 mg Oral Tb24 1 tab once daily [Active]; metoprolol tartrate 50 mg Oral tab 1 tab 3 times per day [Active]; prednisone 10 mg Oral tab once daily [Active]; Ranexa 500 mg Oral Tb12 1 tab 2 times per day [Active]; - PMHx: 18:43 Atrial Fib; Arthritis; Diabetes - NIDDM; Hypertension; iw - Immunization history:: Adult Immunizations up to date. - Social history:: Smoking status: . ROS: 22:08 Constitutional: Negative for fever, chills, and weight loss, Eyes: Negative for injury, tw4 pain, redness, and discharge, Cardiovascular: Negative for chest pain, palpitations, and edema, Respiratory: Negative for shortness of breath, cough, wheezing, and pleuritic chest pain, Abdomen/GI: Negative for abdominal pain, nausea, vomiting, diarrhea, and constipation, Skin: Negative for injury, rash, and discoloration, Neuro: Negative for headache, weakness, numbness, tingling, and seizure. 22:08 MS/extremity: Positive for tenderness. Exam: 22:08 Constitutional: This is a well developed, well nourished patient who is awake, alert, tw4 and in no acute distress. Head/Face: Normocephalic, atraumatic. Cardiovascular: Regular rate and rhythm with a normal S1 and S2. No gallops, murmurs, or rubs. Normal PMI, no JVD. No pulse deficits. Respiratory: Lungs have equal breath sounds bilaterally, clear to auscultation and percussion. No rales, rhonchi or wheezes noted. No increased work of breathing, no retractions or nasal flaring. Abdomen/GI: Soft, non-tender, with normal bowel sounds. No distension or tympany. No guarding or rebound. No evidence of tenderness throughout. Back: No spinal tenderness. No costovertebral tenderness. Full range of motion. Neuro: Awake and alert, GCS 15, oriented to person, place, time, and situation. Cranial nerves II-XII grossly intact. Motor strength 5/5 in all extremities. Sensory grossly intact. Cerebellar exam normal. Normal gait. 22:08 Musculoskeletal/extremity: Extremities: noted in the dorsal aspect of middle phalanx of left little finger: pain. Vital Signs: 18:40 BP 130 / 78; Pulse 66; Resp 16; Temp 97.9; Pulse Ox 100% on R/A; iw MDM: 19:33 Patient medically screened. tw4 22:08 Differential diagnosis: cellulitis. Data reviewed: vital signs, nurses notes. Data tw4 interpreted: Pulse oximetry: Interpretation: normal. Counseling: I had a detailed discussion with the patient and/or guardian regarding: the historical points, exam findings, and any diagnostic results supporting the discharge/admit diagnosis. Special discussion: I discussed with the patient/guardian in detail that at this point there is no indication for admission to the hospital. It is understood, however, that if the symptoms persist or worsen the patient needs to return immediately for re-evaluation. 22:17 ED course: Pt states that she will followup with her hand surgeon. No incision and tw4 drainage is necessary. Administered Medications: 19:54 Drug: Cleocin 300 mg Route: PO; lp1 19:54 Follow up: Response: Medication administered at discharge. lp1 Disposition: 08/08/19 19:39 Discharged to Home. Impression: Cellulitis of finger. - Condition is Stable. - Discharge Instructions: Cellulitis, Adult. - Prescriptions for Cleocin 300 mg Oral Capsule - take 1 capsule by ORAL route every 6 hours for 10 days; 40 capsule. - Medication Reconciliation Form, Thank You Letter, Antibiotic Education, Prescription Opioid Use form. - Follow up: Private Physician; When: Upon discharge from the Emergency Department; Reason: Recheck today's complaints, Continuance of care, Re-evaluation by your physician. - Problem is new. - Symptoms have improved. Signatures: Elif Shaw, RN RN iw Elba Brown RN RN lp1 Jack Spain MD MD tw4 Corrections: (The following items were deleted from the chart) 19:57 19:39 08/08/2019 19:39 Discharged to Home. Impression: Cellulitis of finger. Condition lp1 is Stable. Forms are Medication Reconciliation Form, Thank You Letter, Antibiotic Education, Prescription Opioid Use. Follow up: Private Physician; When: Upon discharge from the Emergency Department; Reason: Recheck today's complaints, Continuance of care, Re-evaluation by your physician. Problem is new. Symptoms have improved. tw4
[2019-08-08 20:06] VITALS: BP 130/78; TEMP 97.9; O2SAT 100
--- OUTSIDE RECORDS SUMMARY | 2019-08-08 20:11 | XMS REPORT | Continuity of Care Document ---
:1930 Author Organization [facility] t Address [address] [place] [address] Care Team Providers Name Role Phone Unavailable Unavailable Unavailable Problems This patient has no known problems. Allergies, Adverse Reactions, Alerts This patient has no known allergies or adverse reactions. Medications This patient has no known medications. Procedures This patient has no known procedures. Results This patient has no known results.
== END 2019-08-08 19:57 | disposition home or self-care (01) ==
LOC: ER 17:58
DX: L03.012 Cellulitis of left finger (principal); I10 Essential (primary) hypertension; E11.9 Type 2 diabetes mellitus without complications; I48.91 Unspecified atrial fibrillation; W57.XXXA Bitten or stung by nonvenomous insect and other nonvenomous arthropods, initial encounter; Y93.9 Activity, unspecified; Y92.9 Unspecified place or not applicable; Z79.01 Long term (current) use of anticoagulants; Z88.2 Allergy status to sulfonamides; Z88.5 Allergy status to narcotic agent
CPT/HCPCS: 99283

== ENCOUNTER 2019-09-08 03:08 | Observation (INO) | payer OTHER ==
--- OUTSIDE RECORDS SUMMARY | 2019-09-08 03:10 | XMS REPORT | Continuity of Care Document ---
:1930 Author Organization [facility] t Address [address] [place] [address] Care Team Providers Name Role Phone Unavailable Unavailable Unavailable Problems This patient has no known problems. Allergies, Adverse Reactions, Alerts This patient has no known allergies or adverse reactions. Medications This patient has no known medications. Procedures This patient has no known procedures. Results This patient has no known results.
[2019-09-08 03:48] LABS: Absolute Lymphocytes (CBC) 1.4 K/uL (0.7-4.9); Basophils % 0.4 % (0-1.3); Hematocrit 46.8 % (36.0-45.0); Lymphocytes % 13.3 % (15.3-44.8); MPV 8.2 fL (7.6-11.3); RBC Red Blood Cell Count 4.94 M/uL (3.86-4.86)
[2019-09-08 03:59] LABS: ALT/SGPT 26 U/L (12-78); AST/SGOT 25 U/L (15-37); Albumin 3.9 g/dL (3.4-5.0); Alkaline Phosphatase 90 U/L (45-117); BUN Blood Urea Nitrogen 18 mg/dL (7-18); Bicarbonate 27 mmol/L (21-32); Bilirubin Direct 0.1 mg/dL (0-0.2); Bilirubin Total 0.6 mg/dL (0.2-1.0); Glucose Level 224 mg/dL (74-106); Lipase 32 U/L (73-393); Magnesium 2.2 mg/dL (1.8-2.4); NT PRO-BNP 870 pg/mL (<450); Protein, Total 9.1 g/dL (6.4-8.2); Sodium Level 141 mmol/L (136-145); Troponin (Emerg Dept Use Only) < 0.02 ng/mL (0.0-0.045)
[2019-09-08 04:00] LABS: Potassium 2.9 mmol/L (3.5-5.1)
[2019-09-08] MEDS ORDERED: NA CHLORIDE 0.9% 1,000 ML ONE (04:16)
[2019-09-08] MEDS ORDERED: FENTANYL CITR 100 MCG/2 ML ONE (04:16)
[2019-09-08] MEDS ORDERED: ONDANSETRON 4 MG/2 ML VIAL ONE (04:17)
[2019-09-08] MEDS ORDERED: KCL 20 MEQ/100 mL IVPB 20 MEQ/100 ML BAG IV ONE ×2 (04:28→05:07)
--- NOTE | 2019-09-08 04:28 | EDPHYS ---
Physician Documentation [facility] Name: Abida Arana Age: 88 yrs Sex: Female : 1930 Arrival Date: 09/08/2019 Time: 03:08 Bed 7 Private MD: ED Physician Nirmal Miranda HPI: 09/07 03:19 This 88 yrs old Black Female presents to ER via EMS with complaints of Nausea/Vomiting. dmitry 03:19 The patient presents to the emergency department with nausea, vomiting, abdominal pain, dmitry of the right upper quadrant, left upper quadrant, right lower quadrant and left lower quadrant. Onset: The symptoms/episode began/occurred 1 day(s) ago. Possible causes: unknown. The symptoms are aggravated by nothing. The symptoms are alleviated by nothing. Associated signs and symptoms: The patient has no apparent associated signs or symptoms. Severity of symptoms: At their worst the symptoms were moderate in the emergency department the symptoms have improved mildly. The patient has not experienced similar symptoms in the past. Historical: - Allergies: 03:13 Codeine; mg2 03:13 Sulfa (Sulfonamide Antibiotics); mg2 - Home Meds: 03:13 Atrovent Inhl as needed [Active]; cetirizine 10 mg Oral tab 1 tab once daily [Active]; mg2 Eliquis 2.5 mg Oral tab 1 tab 2 times per day [Active]; losartan-hydrochlorothiazide 50-12.5 mg Oral tab 1 tab once daily [Active]; magnesium oxide 400 mg Oral cap 400 mg daily [Active]; metformin 500 mg Oral Tb24 1 tab once daily [Active]; metoprolol tartrate 50 mg Oral tab 1 tab 3 times per day [Active]; prednisone 10 mg Oral tab once daily [Active]; Ranexa 500 mg Oral Tb12 1 tab 2 times per day [Active]; - PMHx: 03:13 Arthritis; Atrial Fib; Diabetes - NIDDM; Hypertension; mg2 - Immunization history:: Flu vaccine is not up to date. - Social history:: Smoking status: Patient denies any tobacco usage or history of. Patient/guardian denies using alcohol, street drugs, IV drugs. - Family history:: not pertinent. ROS: 03:19 Constitutional: Negative for fever, chills, and weight loss, Eyes: Negative for injury, dmitry pain, redness, and discharge, ENT: Negative for injury, pain, and discharge, Neck: Negative for injury, pain, and swelling, Cardiovascular: Negative for chest pain, palpitations, and edema, Respiratory: Negative for shortness of breath, cough, wheezing, and pleuritic chest pain, Back: Negative for injury and pain, : Negative for injury, bleeding, discharge, and swelling, MS/Extremity: Negative for injury and deformity, Skin: Negative for injury, rash, and discoloration, Neuro: Negative for headache, weakness, numbness, tingling, and seizure, Psych: Negative for depression, anxiety, suicide ideation, homicidal ideation, and hallucinations, Allergy/Immunology: Negative for hives, rash, and allergies, Endocrine: Negative for neck swelling, polydipsia, polyuria, polyphagia, and marked weight changes, Hematologic/Lymphatic: Negative for swollen nodes, abnormal bleeding, and unusual bruising. 03:19 Abdomen/GI: Positive for abdominal pain, nausea and vomiting. Exam: 03:19 Constitutional: This is a well developed, well nourished patient who is awake, alert, dmitry and in no acute distress. Head/Face: Normocephalic, atraumatic. Eyes: Pupils equal round and reactive to light, extra-ocular motions intact. Lids and lashes normal. Conjunctiva and sclera are non-icteric and not injected. Cornea within normal limits. Periorbital areas with no swelling, redness, or edema. ENT: Nares patent. No nasal discharge, no septal abnormalities noted. Tympanic membranes are normal and external auditory canals are clear. Oropharynx with no redness, swelling, or masses, exudates, or evidence of obstruction, uvula midline. Mucous membranes moist. Neck: Trachea midline, no thyromegaly or masses palpated, and no cervical lymphadenopathy. Supple, full range of motion without nuchal rigidity, or vertebral point tenderness. No Meningismus. Chest/axilla: Normal chest wall appearance and motion. Nontender with no deformity. No lesions are appreciated. Cardiovascular: Regular rate and rhythm with a normal S1 and S2. No gallops, murmurs, or rubs. Normal PMI, no JVD. No pulse deficits. Respiratory: Lungs have equal breath sounds bilaterally, clear to auscultation and percussion. No rales, rhonchi or wheezes noted. No increased work of breathing, no retractions or nasal flaring. Back: No spinal tenderness. No costovertebral tenderness. Full range of motion. Female : Normal external genitalia. Skin: Warm, dry with normal turgor. Normal color with no rashes, no lesions, and no evidence of cellulitis. MS/ Extremity: Pulses equal, no cyanosis. Neurovascular intact. Full, normal range of motion. Neuro: Awake and alert, GCS 15, oriented to person, place, time, and situation. Cranial nerves II-XII grossly intact. Motor strength 5/5 in all extremities. Sensory grossly intact. Cerebellar exam normal. Normal gait. Psych: Awake, alert, with orientation to person, place and time. Behavior, mood, and affect are within normal limits. 03:19 Abdomen/GI: Inspection: abdomen appears normal, Bowel sounds: normal, Palpation: moderate abdominal tenderness, in all quadrants, Liver: no appreciated palpable abnormalities, Hernia: not appreciated. 05:00 ECG was reviewed by the Attending Physician. [facility] Vital Signs: 03:09 BP 157 / 112; Pulse 86; Resp 18; Weight 52.16 kg; Height 5 ft. 1 in. (154.94 cm); Pain mg2 6/10; 04:59 Temp 98; Pulse Ox 98% on R/A; mg2 05:30 BP 132 / 92; Pulse 91; Resp 19; Pulse Ox 98% on R/A; rv 06:13 BP 151 / 101; Pulse 87; Resp 18; Pulse Ox 100% on R/A; mg2 06:30 BP 152 / 93; Pulse 100; Resp 18; Pulse Ox 96% on R/A; rv 07:58 BP 164 / 96; Pulse 94; Resp 17; Pulse Ox 96% ; rb1 03:09 Body Mass Index 21.73 (52.16 kg, 154.94 cm) mg2 MDM: 03:09 Patient medically screened. [facility] 03:20 Data reviewed: vital signs, nurses notes, lab test result(s), EKG, radiologic studies, [facility] CT scan, plain films. 03:21 Differential diagnosis: Nonspecific abd pain, gastritis, cholecystitis, pancreatitis, dmitry diverticulitis, viral gastroenteritis, gastroenteritis. Data interpreted: monitoring specialist: rate is 86 beats/min, rhythm is regular. Test interpretation: by ED physician or midlevel provider: ECG, plain radiologic studies. Counseling: I had a detailed discussion with the patient and/or guardian regarding: the historical points, exam findings, and any diagnostic results supporting the discharge/admit diagnosis, the presence of at least one elevated blood pressure reading (>120/80) during this emergency department visit, lab results, radiology results. Medication response: Zofran partially relieved the patient's nausea. 06:05 ED course: developing sbo with associated enteritis. [facility] 06:06 Physician consultation: Macario Bowie MD and will see patient in the hospital. shortly. [facility] 09/07 03:12 Order name: Basic Metabolic Panel; Complete Time: 04:22 mg2 09/07 03:12 Order name: CBC with Diff; Complete Time: 04:22 mg2 09/07 03:12 Order name: Hepatic Function; Complete Time: 04:22 mg2 09/07 03:12 Order name: Lipase; Complete Time: 04:22 mg2 09/07 03:18 Order name: Urine Culture [facility] 09/07 03:29 Order name: Troponin (Emerg Dept Use Only); Complete Time: 04:22 EDMS 09/07 03:29 Order name: NT PRO-BNP; Complete Time: 04:22 EDMS 09/07 03:29 Order name: Magnesium; Complete Time: 04:22 EDMS 09/07 05:29 Order name: CBC with Automated Diff [facility] 09/07 05:29 Order name: CBC with Automated Diff [facility] 09/07 05:29 Order name: Comprehensive Metabolic Panel [facility] 09/07 03:18 Order name: XRAY Chest (1 view) [facility] 09/07 03:18 Order name: CT Abd/Pelvis - PO and IV Contrast [facility] 09/07 05:29 Order name: Comprehensive Metabolic Panel [facility] 09/07 05:29 Order name: Protime (+INR) [facility] 09/07 05:29 Order name: Protime (+INR) [facility] 09/07 05:29 Order name: PTT, Activated Partial Thromb [facility] 09/07 05:29 Order name: PTT, Activated Partial Thromb [facility] 09/07 05:50 Order name: Urine Dipstick--Ancillary (enter results) 09/07 07:28 Order name: Urine Dipstick-Ancillary [facility] 09/07 03:12 Order name: IV Saline Lock; Complete Time: 03:17 mg2 09/07 03:12 Order name: Labs collected and sent; Complete Time: 03:17 mg2 09/07 03:18 Order name: EKG; Complete Time: 03:19 dmitry 09/07 03:18 Order name: Cardiac monitoring; Complete Time: 04:17 dmitry 09/07 03:18 Order name: EKG - Nurse/Tech; Complete Time: 05:00 dmitry 09/07 03:18 Order name: O2 Per Protocol; Complete Time: 04:17 dmitry 09/07 03:18 Order name: O2 Sat Monitoring; Complete Time: 04:17 dmitry 09/07 05:29 Order name: CONS Pharmacy Consult [facility] 09/07 05:29 Order name: NPO [facility] 09/07 05:29 Order name: CONS Physician Consult EDMS EC:00 Rate is 96 beats/min. Rhythm is irregularly irregular. QRS [place] is Normal. GA interval dmitry is normal. QRS interval is normal. QT interval is normal. No Q waves. T waves are Normal. No ST changes noted. Clinical impression: Atrial Fibrillation. Interpreted by me. Reviewed by me. Administered Medications: 04:16 Drug: NS 0.9% 500 ml Route: IV; Rate: bolus; Site: right antecubital; rv 06:11 Follow up: IV Status: Completed infusion; IV Intake: 500ml mg2 04:16 Drug: fentaNYL (PF) 25 mcg {Note: RASS 0.} Route: IVP; Site: right antecubital; rv 06:58 Follow up: Response: No adverse reaction; RASS: Alert and Calm (0) rv 04:17 Drug: Zofran (Ondansetron) 4 mg Route: IVP; Site: right antecubital; rv 06:58 Follow up: Response: No adverse reaction rv 04:22 Not Given (Duplicate Order): NS 0.9% 1000 ml IV at 125 ml/hr continuous dmitry 04:30 Drug: Pepcid 20 mg {Note: GIVEN BY PREVIOUS SHIFT.} Route: IVP; Site: left antecubital; bp 04:59 Drug: Potassium Chloride 20 mEq Route: IV; Rate: per protocol; Site: right antecubital; mg2 06:59 Follow up: IV Status: Infusion continued upon admission rv 04:59 Drug: NS 0.9% with KCl 20 mEq/L 1000 ml Route: IV; Rate: 100 ml/hr; Site: right mg2 antecubital; 06:58 Follow up: IV Status: Infusion continued upon admission rv 05:35 Drug: Zofran (Ondansetron) 4 mg Route: IVP; Site: right antecubital; mg2 07:03 Follow up: Response: No adverse reaction; Nausea is decreased rb1 07:17 Drug: Rocephin 1 grams Route: IV; Rate: per protocol; Site: right antecubital; mg2 07:30 Follow up: Response: No adverse reaction; IV Status: Completed infusion rb1 07:17 Drug: Flagyl 500 mg Volume: 100 ml; Route: IVPB; Rate: 200 ml/hr; Infused Over: 30 mg2 mins; Site: right antecubital; 09:12 Follow up: Response: No adverse reaction; IV Status: Completed infusion rb1 07:56 Drug: Potassium Chloride 20 mEq Route: IV; Rate: per protocol; Site: right antecubital; rb1 09:44 Follow up: Response: No adverse reaction; IV Status: Completed infusion rb1 Disposition: 09/08/19 04:27 Hospitalization ordered by Aggie Garrett for Inpatient Admission. Preliminary diagnosis are Vomiting, Hypokalemia, Abdominal tenderness, Type 2 diabetes mellitus, Atrial fibrillation and flutter, Other intestinal obstruction - developing sbo with associated enteritis. - Bed requested for Telemetry/MedSurg (Inpatient). - Status is Inpatient Admission. rb1 - Condition is Fair. - Problem is new. - Symptoms have improved. Signatures: Dispatcher [employer] EDWA Roxy Powers, RN Nirmal Darden MD MD cha Garcia, Cindy, RN RN cg Barber, Rebecca, RN RN rb1 Wm Sotelo RN RN bp [place], Michele, RN RN mg2 Harvey Owusu RN RN rv Corrections: (The following items were deleted from the chart) 03:27 03:19 MAGNESIUM+C.LAB.BRZ ordered. EDWA EDMS 03:27 03:19 PROBNP+C.LAB.BRZ ordered. EDWA EDMS 03:28 03:19 TROPONIN (EMERG DEPT USE ONLY)+C.LAB.BRZ ordered. EDWA EDMS 05:42 04:27 Hospitalization Ordered by Aggie Garrett MD for Inpatient Admission. Preliminary cg diagnosis is Vomiting; Hypokalemia; Abdominal tenderness; Type 2 diabetes mellitus; Atrial fibrillation and flutter. Bed requested for Telemetry/MedSurg (Inpatient). Status is Inpatient Admission. Condition is Fair. Problem is new. Symptoms have improved. dmitry 06:03 05:42 09/08/2019 04:27 Hospitalization Ordered by Aggie Garrett MD for Inpatient dmitry Admission. Preliminary diagnosis is Vomiting; Hypokalemia; Abdominal tenderness; Type 2 diabetes mellitus; Atrial fibrillation and flutter. Bed requested for [facility] ER HOLD. Status is Inpatient Admission. Condition is Fair. Problem is new. Symptoms have improved. cg 08:33 06:01 NG Tube ordered. dmitry bp 09:59 06:03 09/08/2019 04:27 Hospitalization Ordered by Aggie Garrett MD for Inpatient dw Admission. Preliminary diagnosis is Vomiting; Hypokalemia; Abdominal tenderness; Type 2 diabetes mellitus; Atrial fibrillation and flutter; Other intestinal obstruction - developing sbo with associated enteritis. Bed requested for [facility] ER HOLD. Status is Inpatient Admission. Condition is Fair. Problem is new. Symptoms have improved. dmitry 11:07 09:59 09/08/2019 04:27 Hospitalization Ordered by Aggie Garrett MD for Inpatient rb1 Admission. Preliminary diagnosis is Vomiting; Hypokalemia; Abdominal tenderness; Type 2 diabetes mellitus; Atrial fibrillation and flutter; Other intestinal obstruction - developing sbo with associated enteritis. Bed requested for Telemetry/MedSurg (Inpatient). Status is Inpatient Admission. Condition is Fair. Problem is new. Symptoms have improved. dw
--- NOTE | 2019-09-08 04:28 | ER ---
Nurse's Notes [facility] Devendra Name: Abida Arana Age: 88 yrs Sex: Female : 1930 Arrival Date: 09/08/2019 Time: 03:08 Bed 7 Private MD: Diagnosis: Vomiting;Hypokalemia;Abdominal tenderness;Type 2 diabetes mellitus;Atrial fibrillation and flutter;Other intestinal obstruction-developing sbo with associated enteritis Presentation: 09/07 03:09 Chief complaint: EMS states: she complained of n/v and abdominal pain since 9 pm mg2 tonight. denies fever. patient said she has been constipated for few days now, BGL-215. Coronavirus screen: Proceed with normal triage. Patient denies a cough. Patient denies shortness of breath or difficulty breathing. Patient denies measured and/or subjective temperature greater than 100.4F prior to today's visit. Patient denies travel on a cruise ship or to a country the [facility] currently lists as an affected area. Patient denies contact with known and/or suspected case of COVID-19. Ebola Screen: No symptoms or risks identified at this time. Initial Sepsis Screen: Does the patient meet any 2 criteria? No. Patient's initial sepsis screen is negative. Does the patient have a suspected source of infection? No. Patient's initial sepsis screen is negative. Risk Assessment: Do you want to hurt yourself or someone else? Patient reports no desire to harm self or others. Onset of symptoms was September 07, 2019 at 21:00. 03:09 Method Of Arrival: EMS: [facility] mg2 03:09 Acuity: MEGAN 3 mg2 Triage Assessment: 03:14 General: Appears in no apparent distress. comfortable, Behavior is calm, cooperative. mg2 Pain: Complains of pain in abdomen Pain currently is 6 out of 10 on a pain scale. Quality of pain is described as aching, Pain began gradually. EENT: No signs and/or symptoms were reported regarding the EENT system. Cardiovascular: Capillary refill < 3 seconds Patient's skin is warm and dry. 03:17 GI: Reports lower abdominal pain. rv Historical: - Allergies: 03:13 Codeine; mg2 03:13 Sulfa (Sulfonamide Antibiotics); mg2 - Home Meds: 03:13 Atrovent Inhl as needed [Active]; cetirizine 10 mg Oral tab 1 tab once daily [Active]; mg2 Eliquis 2.5 mg Oral tab 1 tab 2 times per day [Active]; losartan-hydrochlorothiazide 50-12.5 mg Oral tab 1 tab once daily [Active]; magnesium oxide 400 mg Oral cap 400 mg daily [Active]; metformin 500 mg Oral Tb24 1 tab once daily [Active]; metoprolol tartrate 50 mg Oral tab 1 tab 3 times per day [Active]; prednisone 10 mg Oral tab once daily [Active]; Ranexa 500 mg Oral Tb12 1 tab 2 times per day [Active]; - PMHx: 03:13 Arthritis; Atrial Fib; Diabetes - NIDDM; Hypertension; mg2 - Immunization history:: Flu vaccine is not up to date. - Social history:: Smoking status: Patient denies any tobacco usage or history of. Patient/guardian denies using alcohol, street drugs, IV drugs. - Family history:: not pertinent. Screenin:16 Abuse screen: Denies threats or abuse. Denies injuries from another. Nutritional rv screening: No deficits noted. Tuberculosis screening: No symptoms or risk factors identified. Fall Risk None identified. Assessment: 03:14 General: Appears ill, Behavior is calm, cooperative. Pain: Complains of pain in rv abdomen. Neuro: Level of Consciousness is awake, alert, obeys commands, Oriented to person, place, time, situation. Cardiovascular: Patient's skin is warm and dry. Respiratory: Airway is patent. GI: Abdomen is round distended. Derm: Skin is intact. 05:00 Reassessment:. Neuro: Level of Consciousness is awake, alert, obeys commands, Oriented rv to person, place, time, situation. Cardiovascular: Patient's skin is warm and dry. Rhythm is regular. Respiratory: Airway is patent Breath sounds are clear bilaterally. GI: Abdomen is round distended. 06:53 Reassessment: Patient and/or family updated on plan of care and expected duration. Pain rv level reassessed. Patient is alert, oriented x 3, equal unlabored respirations, skin warm/dry/pink. Pain: Complains of pain in abdomen. 06:54 Reassessment: EXPLAINED TO PATIENT THE PLAN OF CARE. PATIENT REFUSED TO HAVE NGT, rv ANTIBIOTICS, AND FURTHER TREATMENT AND IS DECIDING TO GO AMA. TALKED TO THE FAMILY ON THE PHONE AND IS STILL DECIDING ON THE MATTER. AWAITING FAMILY AND PATIENT'S DECISION. 07:08 Reassessment:. General: Appears in no apparent distress. comfortable, Behavior is calm, rb1 cooperative. Pain: Complains of pain in abdomen. Neuro: Level of Consciousness is awake, alert, obeys commands, Oriented to person, place, time, situation. Cardiovascular: Capillary refill < 3 seconds. Respiratory: Airway is patent Respiratory effort is even, unlabored, Respiratory pattern is regular, symmetrical. GI: Last BM was September 08, 2019. : wearing brief. Derm: Skin is dry, Skin is normal, Skin temperature is warm. 08:00 Reassessment: Patient appears in no apparent distress at this time. No changes from rb1 previously documented assessment. 09:51 Reassessment: Guillaume Hand called requested the pt. house keys so he could get in to [facility] clean her apartment. Pt. was notified and she gave me her house keys to give to Guillaume when he arrives. 10:29 Reassessment: Called report to LIZETH Wesley. Information from the SBAR was given. All rb1 questions asked and answered. Vital Signs: 03:09 BP 157 / 112; Pulse 86; Resp 18; Weight 52.16 kg; Height 5 ft. 1 in. (154.94 cm); Pain mg2 6/10; 04:59 Temp 98; Pulse Ox 98% on R/A; mg2 05:30 BP 132 / 92; Pulse 91; Resp 19; Pulse Ox 98% on R/A; rv 06:13 BP 151 / 101; Pulse 87; Resp 18; Pulse Ox 100% on R/A; mg2 06:30 BP 152 / 93; Pulse 100; Resp 18; Pulse Ox 96% on R/A; rv 07:58 BP 164 / 96; Pulse 94; Resp 17; Pulse Ox 96% ; rb1 03:09 Body Mass Index 21.73 (52.16 kg, 154.94 cm) mg2 ED Course: 03:08 Patient arrived in ED. ds1 03:09 Nirmal Miranda MD is Attending Physician. dmitry 03:11 Triage completed. mg2 03:13 Harvey Owusu RN is Primary Nurse. rv 03:13 Arm band placed on. mg2 03:13 Initial lab(s) drawn, by me, sent to lab. Inserted saline lock: 20 gauge in right rv antecubital area, using aseptic technique. Blood collected. 03:16 Patient has correct armband on for positive identification. Placed in gown. Bed in low rv position. Call light in reach. Side rails up X 1. metal polisher and buffer apprentice on. Pulse ox on. NIBP on. 03:40 XRAY Chest (1 view) In Process Unspecified. EDMS 04:25 Aggie Garrett MD is Hospitalizing Provider. dmitry 05:19 CT Abd/Pelvis - PO and IV Contrast In Process Unspecified. EDMS 06:12 No provider procedures requiring assistance completed. Patient admitted, IV remains in mg2 place. 07:21 Primary Nurse role handed off by Harvey Owusu, LIZETH rb1 07:21 Georgette Mckenzie, LIZETH is Primary Nurse. rb1 11:04 No provider procedures requiring assistance completed. Patient admitted, IV remains in rb1 place. Administered Medications: 04:16 Drug: NS 0.9% 500 ml Route: IV; Rate: bolus; Site: right antecubital; rv 06:11 Follow up: IV Status: Completed infusion; IV Intake: 500ml mg2 04:16 Drug: fentaNYL (PF) 25 mcg {Note: RASS 0.} Route: IVP; Site: right antecubital; rv 06:58 Follow up: Response: No adverse reaction; RASS: Alert and Calm (0) rv 04:17 Drug: Zofran (Ondansetron) 4 mg Route: IVP; Site: right antecubital; rv 06:58 Follow up: Response: No adverse reaction rv 04:22 Not Given (Duplicate Order): NS 0.9% 1000 ml IV at 125 ml/hr continuous dmitry 04:30 Drug: Pepcid 20 mg {Note: GIVEN BY PREVIOUS SHIFT.} Route: IVP; Site: left antecubital; bp 04:59 Drug: Potassium Chloride 20 mEq Route: IV; Rate: per protocol; Site: right antecubital; mg2 06:59 Follow up: IV Status: Infusion continued upon admission rv 04:59 Drug: NS 0.9% with KCl 20 mEq/L 1000 ml Route: IV; Rate: 100 ml/hr; Site: right mg2 antecubital; 06:58 Follow up: IV Status: Infusion continued upon admission rv 05:35 Drug: Zofran (Ondansetron) 4 mg Route: IVP; Site: right antecubital; mg2 07:03 Follow up: Response: No adverse reaction; Nausea is decreased rb1 07:17 Drug: Rocephin 1 grams Route: IV; Rate: per protocol; Site: right antecubital; mg2 07:30 Follow up: Response: No adverse reaction; IV Status: Completed infusion rb1 07:17 Drug: Flagyl 500 mg Volume: 100 ml; Route: IVPB; Rate: 200 ml/hr; Infused Over: 30 mg2 mins; Site: right antecubital; 09:12 Follow up: Response: No adverse reaction; IV Status: Completed infusion rb1 07:56 Drug: Potassium Chloride 20 mEq Route: IV; Rate: per protocol; Site: right antecubital; rb1 09:44 Follow up: Response: No adverse reaction; IV Status: Completed infusion rb1 Intake: 06:11 IV: 500ml; Total: 500ml. mg2 Outcome: 04:27 Decision to Hospitalize by Provider. [facility] 06:53 Admitted to ER Hold. Please see [facility] for further documentation. rv 06:53 Condition: stable 06:53 Instructed on the need for admit. 11:04 Admitted to Med/surg accompanied by tech, via stretcher, room 206, with chart, Other rb1 Purse and other personal belongings were sent to the floor with the pt in personal belongings bags with pt. labels on them. There were a total of three bags. Report called to LIZETH Wesley 11:04 Condition: stable 11:04 Instructed on the need for admit. 11:07 Patient left the ED. rb1 Signatures: Dispatcher [employer] EDWI Nirmal Miranda MD MD cha Sanford, Demi ds1 Georgette Mckenzie, RN RN rb1 Wm Sotelo, RN RN bp Scott Khan, LIZETH RN mg2 Harvey Owusu, LIZETH RN rv Corrections: (The following items were deleted from the chart) 06:57 06:12 Flagyl 500 mg 100 ml IVPB at 200 ml/hr in right antecubital over 30 mins 100 ml rv mg2 06:58 06:12 Rocephin 1 grams IV at per protocol in right antecubital mg2 rv
[2019-09-08] MEDS ORDERED: NS KCL 20MEQ 1,000 ML IV ONE (05:06)
[2019-09-08] MEDS ORDERED: NA CHLORIDE 0.9% 500 ML ONE (05:07)
[2019-09-08] MEDS ORDERED: ONDANSETRON 4 MG/2 ML VIAL IV PRN (05:25)
[2019-09-08] MEDS ORDERED: ACETAMINOPHEN 500 MG TAB PO PRN (05:25)
[2019-09-08] MEDS ORDERED: MORPHINE 2 MG/ML SYR IV PRN (05:25)
[2019-09-08] MEDS: NA CHLORIDE 0.9% 1,000 ML IV SCH ×2 (06:00→17:43)
[2019-09-08] MEDS ORDERED: FAMOTIDINE 20 MG/2 ML VIAL IV ONE (06:15)
[2019-09-08] MEDS ORDERED: CEFTRIAXONE 1000 MG/VIAL ONE (06:26)
[2019-09-08] MEDS ORDERED: METRONIDAZOLE 500mg IVPB 500 MG/100 ML BAG IV ONE (06:26)
--- NOTE | 2019-09-08 07:23 | EKG ---
Test Date: 2019-09-08 Test Time: 04:44:09 [employer] Log[employer] Operator: PRISCILA MEASUREMENT RESULTS: Intervals: Rate: 96 CO: QRSD: 70 QT: 366 QTc: 462 [place]: P: CO: QRS: 33 T: -4 INTERPRETIVE STATEMENTS: Atrial fibrillation Abnormal ECG Compared to ECG 05/31/2018 05:03:53 Right-axis deviation no longer present Myocardial infarct finding no longer present Electronically Signed On 09-08-19 07:22:50 CDT by Manjinder Jesus
[2019-09-08 07:27] LABS: Urine Blood TRACE (NEG); Urine Glucose TRACE (NEG); Urine Protein 1+ (NEG); Urine pH 8.5 (5.0-7.0)
--- NOTE | 2019-09-08 08:26 | RAD REPORT ---
EXAM DESCRIPTION: RAD - Chest Single View - 09/08/2019 3:40 am CLINICAL HISTORY: ABDOMINAL DISTENTION COMPARISON: Portable May 2018 TECHNIQUE: AP portable chest image was obtained 09/08/2019 3:40 am . FINDINGS: No peripheral mass or consolidation. No measurable failure or volume overload. Heart size is prominent, magnified by rotation. No vascular engorgement. No measurable pleural effusion and no p neumothorax. No acute bony abnormality seen. No acute aortic findings suspected. IMPRESSION: No acute cardiopulmonary process.
--- NOTE | 2019-09-08 10:07 | RAD REPORT ---
EXAM DESCRIPTION: CT - Abdomen Pelvis W Contrast - 09/08/2019 6:37 am CLINICAL HISTORY: The patient is 88 years old and is Female; ABD PAIN TECHNIQUE: Axial computed tomography images of the abdomen and pelvis with intravenous contrast. S agittal and coronal reformatted images were created and reviewed. This CT exam was performed using one or more of the following dose reduction techniques: automated exposure control, adjustment of t he mA and/or kV according to patient size, and/or use of iterative reconstruction technique. COMPARISON: CT April 04, 2014 FINDINGS: LUNG BASES: Unremarkable. No mass. No consolidation. HEART: A small pericardial effusion is present. ABDOMEN: LIVER: Unremarkable. No mass. GALLBLADDER AND BILE DUCTS: The gallbladder is physiologically distended. PANCREAS: The pancreas is atrophic and fatty replaced. SPLEEN: Unremarkable. ADRENALS: Unremarkable. No mass. KIDNEYS AND URETERS: An exophytic large right renal cyst measuring 4.2 cm is present. No follow- up imaging is recommended. The kidneys enhance symmetrically. There is no hydronephrosis or hydrouret er of either kidney. STOMACH AND BOWEL: The stomach is distended with oral contrast and air. Multiple dilated loops o f small bowel within the mid to lower abdomen demonstrating air-fluid levels and mild mucosal enhance ment are present. A few small bowel loops in the right upper quadrant artifact is demonstrated adjace nt mesenteric edema and inflammation. A definite transition point is not seen; however, the distal il eum is normal in caliber. A moderate amount stool is present throughout colon. A few scattered coloni c diverticula are present. PELVIS: APPENDIX: No findings to suggest acute appendicitis. BLADDER: The bladder is well distended. REPRODUCTIVE: Unremarkable as visualized. ABDOMEN and PELVIS: INTRAPERITONEAL SPACE: Unremarkable. No free air. No significant fluid collection. BONES/JOINTS: No acute fracture. SOFT TISSUES: The soft tissues are normal. VASCULATURE: Unremarkable. No abdominal aortic aneurysm. LYMPH NODES: Unremarkable. No enlarged lymph nodes. IMPRESSION: Findings consistent with a developing small bowel obstruction with associated enteritis. Several small bowel loops that are affected demonstrate mucosal enhancement and adjacent mild inflam matory stranding. Electronically signed by: Anna Rivero MD 09/08/2019 5:40 AM CDT Due to temporary technical issues with the PACS/Fluency reporting system, reports are being signed by the in house radiologist without review as a courtesy to ensure prompt reporting. The interpreting r adiologist is fully responsible for the content of the report.
[2019-09-08] MEDS ORDERED: MINERAL OIL 30 ML UCUP PO ONE (11:32)
[2019-09-08 11:43] VITALS: BMI 22.3
[2019-09-08] MEDS ORDERED: CETIRIZINE HCL 5 MG TABLET PO PRN (12:11)
--- NOTE | 2019-09-08 12:11 | P.HP ---
Certification for Inpatient Patient admitted to: Inpatient With expected LOS: >2 Midnights Patient will require the following post-hospital care: None Practitioner: I am a practitioner with admitting privileges, knowledge of patient current condition, hospital course, and medical plan of care. Services: Services provided to patient in accordance with Admission requirements found in Title 42 Section 412.3 of the Code of Federal Regulations Patient History Date of Service: 09/08/19 Reason for admission: SMALL-BOWEL OBSTRUCTION History of Present Illness: PATIENT IS AN 88-YEAR-OLD FEMALE WHO IS WELL KNOWN TO ME FROM PRIOR ADMISSIONS WHO COMES INTO THE HOSPITAL WITH ABDOMINAL PAIN ALONG WITH NAUSEA AND VOMITING. THIS HAS BEEN GOING ON FOR THE LAST 24 HOURS. THE FAMILY BROUGHT HER INTO THE EMERGENCY ROOM FOR FURTHER EVALUATION. IN THE EMERGENCY ROOM PATIENT HAD IMAGING STUDIES WHICH REVEALED SMALL BOWEL OBSTRUCTION. PATIENT WILL BE ADMITTED TO THE HOSPITAL FOR IV ANTIBIOTICS AND IV FLUIDS. WE WILL ALSO CONTINUE WITH PAIN CONTROL. Allergies codeine [Codeine] Adverse Reaction (Intermediate, Verified 11/29/11 16:23) NAUSEA/DIZZY Sulfa (Sulfonamide Antibiotics) [Sulfa(Sulfonamide Antibiotics)] Adverse Reaction (Intermediate, Verified 11/29/11 16:24) NAUSEA/DIZZY Home Medications: Magnesium Oxide [Mag 0X*] 400 mg PO DAILY 01/30/14 Apixaban [Eliquis *] 2.5 mg PO BID #60 tablet 07/17/17 Cetirizine HCl [Zyrtec*] 10 mg PO DAILYPRN PRN 07/17/17 Ranolazine [Ranexa] 500 mg PO BID 07/17/17 Metoprolol Succinate [Toprol Xl*] 150 mg PO BID #90 tab 06/02/18 Acetaminophen [Tylenol Arthritis] 650 mg PO Q6HR PRN 09/08/19 Amlodipine Besylate 5 mg PO DAILY 09/08/19 Potassium Chloride [Klor-Con 10] 10 meq PO BID 09/08/19 - Past Medical/Surgical History Has patient received pneumonia vaccine in the past: No Diabetic: Yes -: borderline diabetic -: Afib -: hypertension -: Arthritis -: Hand sx left hand x 2 -: tubal ligation -: D&C -: hemmorhoid sx - Family History Mother Medical History: Hypertension, Kidney disease Father Medical History: Heart disease, Kidney disease, Other (see notes) Notes: prostrate problems - Social History Smoking Status: Former smoker Alcohol use: No CD- Drugs: No Caffeine use: No Place of Residence: Home Review of Systems 10-point ROS is otherwise unremarkable Physical Examination - Vital Signs Temperature: 97.5 F Blood Pressure: 156/95 Pulse: 71 Respirations: 16 Pulse Ox (%): 100 - Physical Exam General: Alert, In no apparent distress, Oriented x3 HEENT: Atraumatic, PERRLA, Mucous membr. moist/pink, EOMI, Sclerae nonicteric Neck: Supple, 2+ carotid pulse no bruit, No LAD, Without JVD or thyroid abnormality Respiratory: Clear to auscultation bilaterally, Normal air movement Cardiovascular: Regular rate/rhythm, Normal S1 S2, No murmurs Gastrointestinal: Hypoactive, Soft and benign, No rebound, No guarding, Distended, Tenderness Musculoskeletal: No clubbing, No swelling, No tenderness Integumentary: No rashes Neurological: Normal gait, Normal speech, Normal strength at 5/5 x4 extr, Normal tone, Sensation intact, Cranial nerves 3-12 intact Lymphatics: No axilla or inguinal lymphadenopathy - Studies Laboratory Data (last 24 hrs) 09/08/19 03:18: Magnesium Cancelled 09/08/19 03:15: WBC 10.3, Hgb 15.9 H, Hct 46.8 H, Plt Count 238 09/08/19 03:15: Sodium 141, Potassium 2.9 L*, BUN 18, Creatinine 1.18, Glucose 224 H, Magnesium 2.2, Total Bilirubin 0.6, AST 25, ALT 26, Alkaline Phosphatase 90, Lipase 32 L Assessment & Plan - Problems (Diagnosis) (1) Small bowel obstruction Current Visit: Yes Status: Acute (2) Atrial fibrillation with RVR Onset Date: 07/17/17 Current Visit: No Status: Acute (3) Shortness of breath Onset Date: 07/17/17 Current Visit: No Status: Acute (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 Current Visit: No Status: Acute (5) CHF (congestive heart failure) Onset Date: 04/04/14 Current Visit: No Status: Chronic Qualifiers: (6) Diabetes mellitus Onset Date: 07/17/17 Current Visit: No Status: Chronic Qualifiers: (7) Hypertension Onset Date: 07/17/17 Current Visit: No Status: Chronic Qualifiers: - Plan -MANAGEMENT PER SURGERY -DVT PROPHYLAXIS -IV HYDRATION AND IV ANTIBIOTICS -NPO -STRICT BLOOD PRESSURE AND BLOOD SUGAR CONTROL -MONITOR ELECTROLYTES AND BLOOD COUNT CLOSELY -DC CAO CATHETER IN 24 HR -PAIN CONTROL Discharge Plan: Home Plan to discharge in: Greater than 2 days - Advance Directives Does patient have a Living Will: No Does patient have a Durable POA for Healthcare: No - Code Status/Comfort Care Code Status Assessed: Yes Code Status: Full Code Critical Care: No Time Spent Managing PTS Care (In Minutes): 45
[2019-09-08] MEDS ORDERED: METOPROLOL TARTRATE 5 MG/5 ML INJ IV STA (12:12)
[2019-09-08] MEDS ORDERED: METOPROLOL TARTRATE 5 MG/5 ML INJ IV PRN (16:00)
[2019-09-08] MEDS: METOPROLOL XL 50 MG TAB PO SCH ×2 (17:42→21:07)
[2019-09-08] MEDS ORDERED: ENOXAPARIN 30 MG/0.3 ML SQ SCH (18:00)
[2019-09-08] MEDS ORDERED: METOPROLOL XL 100 MG TAB PO SCH (21:00)
[2019-09-08] MEDS: POTASSIUM CL SA 10 MEQ TAB PO SCH (21:08)
[2019-09-09] MEDS: NA CHLORIDE 0.9% 1,000 ML IV SCH ×2 (02:00→08:22)
[2019-09-09 04:38] LABS: Absolute Lymphocytes (CBC) 1.7 K/uL (0.7-4.9); Basophils % 0.6 % (0-1.3); Hematocrit 43.9 % (36.0-45.0); Lymphocytes % 20.3 % (15.3-44.8); MPV 8.1 fL (7.6-11.3)
[2019-09-09 04:42] LABS: Protime INR 1.16
[2019-09-09 04:50] LABS: Bilirubin Total 0.5 mg/dL (0.2-1.0); Potassium 3.2 mmol/L (3.5-5.1); Protein, Total 7.4 g/dL (6.4-8.2)
[2019-09-09] MEDS: METOPROLOL XL 50 MG TAB PO SCH (06:00)
[2019-09-09] MEDS ORDERED: POTASSIUM CL 40 MEQ in NA CHLORIDE 0.9% 500 ML IV SCH (06:00)
[2019-09-09] MEDS: KCL 20 MEQ/100 mL IVPB 20 MEQ/100 ML BAG IV SCH ×3 (06:30→08:16)
[2019-09-09 08:00] VITALS: BP 143/78
[2019-09-09] MEDS: POTASSIUM CL SA 10 MEQ TAB PO SCH (08:15)
[2019-09-09 08:49] VITALS: TEMP 97
[2019-09-09] MEDS ORDERED: MAGNESIUM OXIDE 400 MG TAB PO SCH (09:00)
[2019-09-09] MEDS ORDERED: AMLODIPINE 5 MG TAB PO SCH (09:00)
--- NOTE | 2019-09-09 09:55 | P.DS ---
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 THIS HAS BEEN GOING ON FOR THE LAST 24 HOURS. THE FAMILY BROUGHT HER INTO THE EMERGENCY ROOM FOR FURTHER EVALUATION. IN THE EMERGENCY ROOM PATIENT HAD IMAGING STUDIES WHICH REVEALED SMALL BOWEL OBSTRUCTION. PATIENT WILL BE ADMITTED TO THE HOSPITAL FOR IV ANTIBIOTICS AND IV FLUIDS. WE WILL ALSO CONTINUE WITH PAIN CONTROL. Hospital Course: Patient did well during hospital stay. Patient is tolerating diet. No nausea and vomiting. At this time, patient is stable for discharge with outpatient followup. Vital Signs/Physical Exam: Temp Pulse Resp BP Pulse Ox 97.0 F 102 H 16 143/78 H 96 09/09/19 08:00 09/09/19 08:14 09/09/19 08:00 09/09/19 08:14 09/09/19 08:00 General: Alert, In no apparent distress, Oriented x3 Laboratory Data at Discharge: WBC 8.3 K/uL (4.3-10.9) D 09/09/19 03:58 Hgb 14.6 g/dL (12.0-15.0) 09/09/19 03:58 Hct 43.9 % (36.0-45.0) 09/09/19 03:58 Plt Count 229 K/uL (152-406) 09/09/19 03:58 PT 13.6 SECONDS (9.5-12.5) H 09/09/19 03:54 INR 1.16 09/09/19 03:54 APTT 32.8 SECONDS (24.3-36.9) 09/09/19 03:54 Sodium 141 mmol/L (136-145) 09/09/19 03:58 Potassium 3.2 mmol/L (3.5-5.1) L 09/09/19 03:58 BUN 14 mg/dL (7-18) 09/09/19 03:58 Creatinine 1.03 mg/dL (0.55-1.3) 09/09/19 03:58 Glucose 145 mg/dL (74-106) H 09/09/19 03:58 Magnesium Cancelled 09/08/19 03:18 Total Bilirubin 0.5 mg/dL (0.2-1.0) 09/09/19 03:58 AST 23 U/L (15-37) 09/09/19 03:58 ALT 20 U/L (12-78) 09/09/19 03:58 Alkaline Phosphatase 74 U/L (45-117) 09/09/19 03:58 Lipase 32 U/L (73-393) L 09/08/19 03:15 Home Medications: Magnesium Oxide [Mag 0X*] 400 mg PO DAILY 01/30/14 Apixaban [Eliquis *] 2.5 mg PO BID #60 tablet 07/17/17 Cetirizine HCl [Zyrtec*] 10 mg PO DAILYPRN PRN 07/17/17 Ranolazine [Ranexa] 500 mg PO BID 07/17/17 Metoprolol Succinate [Toprol Xl*] 150 mg PO BID #90 tab 06/02/18 Acetaminophen [Tylenol Arthritis] 650 mg PO Q6HR PRN 09/08/19 Amlodipine Besylate 5 mg PO DAILY 09/08/19 Potassium Chloride [Klor-Con 10] 10 meq PO BID 09/08/19 Patient Discharge Instructions: OK TO DC IV AND DC HOME. FOLLOW-UP WITH PRIMARY CARE PROVIDER IN 1-2 WEEKS. FOLLOW-UP WITH CARDIOLOGY IN 1-2 WEEKS. RETURN TO THE ER IF SYMPTOMS WORSEN. CALL DR. MIR AT [phone] IF ANY QUESTIONS REGARDING HOSPITAL STAY. PLEASE CALL THE FLOOR AT [phone] IF ANY MEDICATION OR NURSING QUESTIONS. Diet: AHA Activity: Fall precautions Followup: Manjinder Jesus MD [ACTIVE - CAN ADMIT] - Macario Bowie MD [ACTIVE - CAN ADMIT] - Time spent managing pt's care (in minutes): 20
== END 2019-09-09 12:10 | disposition home or self-care (01) ==
LOC: ER 03:08 → ERHOLD 05:32 → INTOOBSV 05:32 → ERHOLD 05:33 → 2ND 10:16
PROVIDERS: ADMIT Hospitalist; ATTEND Hospitalist
DX: K56.699 Other intestinal obstruction unspecified as to partial versus complete obstruction (principal); K52.89 Other specified noninfective gastroenteritis and colitis; E87.6 Hypokalemia; I48.20 Chronic atrial fibrillation, unspecified; E11.9 Type 2 diabetes mellitus without complications; I11.0 Hypertensive heart disease with heart failure; I50.9 Heart failure, unspecified; M19.90 Unspecified osteoarthritis, unspecified site; Z79.01 Long term (current) use of anticoagulants; Z79.84 Long term (current) use of oral hypoglycemic drugs; Z79.52 Long term (current) use of systemic steroids; Z79.899 Other long term (current) drug therapy; Z87.891 Personal history of nicotine dependence; Z85.830 Personal history of malignant neoplasm of bone
CPT/HCPCS: 96365; 96367; 96361; 96368; 93005; 85025 ×2; 80048; 36415 ×2; 83735; 84132; 85610; 82947; 80076; 85730; 81003; 84484; 83690; 80053; 83880; 74177; 71045; 96375; 99285; 96366; Q9967; J3480 ×3; J1650; J3010; J7040; J7030 ×2; J2405 ×2; G0378 ×3

== ENCOUNTER 2020-01-24 | Emergency (ER) | payer OTHER ==
--- OUTSIDE RECORDS SUMMARY | 2020-01-24 18:09 | XMS REPORT | Continuity of Care Document ---
:1930 Author Organization [facility] t Address [address] [place] [address] Care Team Providers Name Role Phone Unavailable Unavailable Unavailable Problems This patient has no known problems. Allergies, Adverse Reactions, Alerts This patient has no known allergies or adverse reactions. Medications This patient has no known medications. Procedures This patient has no known procedures. Results This patient has no known results.
--- NOTE | 2020-01-25 07:26 | ER ---
Nurse's Notes [facility] Name: Abida Arana Age: 89 yrs Sex: Female : 1930 Arrival Date: 01/24/2020 Time: 17:53 Bed 23 Private MD: Diagnosis: Pain in unspecified knee-bilateral Presentation: 01/23 18:08 Chief complaint: Patient states: States was in a store parking lot and tripped over 1 [address] curb and fell on TYSHAWN knees and right hand. Coronavirus screen: Client denies travel out of the [place] in the last 14 days. At this time, the client does not indicate any symptoms associated with coronavirus-19. Ebola Screen: Patient negative for fever greater than or equal to 101.5 degrees Fahrenheit, and additional compatible Ebola Virus Disease symptoms. Initial Sepsis Screen: Does the patient meet any 2 criteria? No. Patient's initial sepsis screen is negative. Does the patient have a suspected source of infection? No. Patient's initial sepsis screen is negative. Risk Assessment: Do you want to hurt yourself or someone else? Patient reports no desire to harm self or others. Onset of symptoms was January 24, 2020. 18:08 Method Of Arrival: Ambulatory vg1 18:11 Acuity: MEGAN 3 vg1 Triage Assessment: 18:10 General: Appears in no apparent distress. Behavior is calm, cooperative. Pain: vg1 Complains of pain in TYSHAWN knees and right hand Pain currently is 6 out of 10 on a pain scale. Neuro: Level of Consciousness is awake, alert, obeys commands, Oriented to person, place, time, situation. Respiratory: Airway is patent Respiratory effort is even, unlabored. Historical: - Allergies: 18:11 Codeine; vg1 18:11 Sulfa (Sulfonamide Antibiotics); vg1 - PMHx: 18:11 Arthritis; Atrial Fib; Diabetes - NIDDM; Hypertension; vg1 - Immunization history:: Adult Immunizations unknown, Flu vaccine is not up to date. - Social history:: Smoking status: Patient denies any tobacco usage or history of. Patient/guardian denies using alcohol, street drugs, The patient lives with family. - Family history:: not pertinent. Screenin:21 Abuse screen: Denies threats or abuse. Denies injuries from another. Nutritional aj1 screening: No deficits noted. Tuberculosis screening: No symptoms or risk factors identified. Assessment: 19:21 General: Appears in no apparent distress. comfortable, Behavior is calm, cooperative, aj1 appropriate for age. Pain: Complains of pain in right hand, right knee and left knee Pain does not radiate. Pain currently is 5 out of 10 on a pain scale. Neuro: Level of Consciousness is awake, alert, obeys commands, Oriented to person, place, time, situation. Cardiovascular: Patient's skin is warm and dry. Respiratory: Airway is patent Respiratory effort is even, unlabored, Respiratory pattern is regular, symmetrical. GI: No signs and/or symptoms were reported involving the gastrointestinal system. : No signs and/or symptoms were reported regarding the genitourinary system. EENT: No signs and/or symptoms were reported regarding the EENT system. Derm: No signs and/or symptoms reported regarding the dermatologic system. Skin is pink, warm \T\ dry. normal. Musculoskeletal: Range of motion: intact in all extremities. 20:20 Reassessment: Patient appears in no apparent distress at this time. No changes from aj1 previously documented assessment. Patient and/or family updated on plan of care and expected duration. Pain level reassessed. Patient is alert, oriented x 3, equal unlabored respirations, skin warm/dry/pink. Vital Signs: 18:11 BP 162 / 96 RA; Pulse 78; Resp 16; Temp 97.8; Pulse Ox 99% on R/A; Weight 53.52 kg; vg1 Height 5 ft. 1 in. (154.94 cm); Pain 6/10; 18:11 Body Mass Index 22.29 (53.52 kg, 154.94 cm) vg1 ED Course: 17:53 Patient arrived in ED. as 18:13 Triage completed. vg1 18:13 Arm band placed on. vg1 19:07 Aggie Mark MD is Attending Physician. [email or web address] 19:20 Fern Butler, LIZETH is Primary Nurse. aj1 19:21 Patient has correct armband on for positive identification. Bed in low position. Call aj1 light in reach. Side rails up X 1. 19:21 No provider procedures requiring assistance completed. Patient did not have IV access aj during this emergency room visit. Administered Medications: No medications were administered Outcome: 19:19 Discharge ordered by . [email or web address] 20:23 Patient left the ED. mw2 20:24 Discharged to home via wheelchair, with family. ajMessi 20:24 Condition: good 20:24 Discharge instructions given to patient, family, Instructed on discharge instructions, follow up and referral plans. Demonstrated understanding of instructions, follow-up care. Signatures: Fern Butler, RN RN aj1 Tamy Whitten Mohammad, MD MD ma2 Sindhu Balderas mw2 Terra Fitzgerald, RN RN vg1
--- NOTE | 2020-01-25 07:26 | EDPHYS ---
Physician Documentation [facility] Name: Abida Arana Age: 89 yrs Sex: Female : 1930 Arrival Date: 01/24/2020 Time: 17:53 Bed 23 Private MD: ED Physician Aggie Mark HPI: 01/23 19:16 This 89 yrs old Black Female presents to ER via Ambulatory with complaints of Fall ma2 Injury. 19:16 Details of fall: The patient fell from an upright position, while walking. Onset: The ma2 symptoms/episode began/occurred suddenly, 1 hour(s) ago. Severity of symptoms: At their worst the symptoms were very mild, in the emergency department the symptoms have resolved. The patient has not experienced similar symptoms in the past. tripped fell on right hand and both knees, hasbilateral knee pain . Historical: - Allergies: 18:11 Codeine; vg1 18:11 Sulfa (Sulfonamide Antibiotics); vg1 - PMHx: 18:11 Arthritis; Atrial Fib; Diabetes - NIDDM; Hypertension; vg1 - Immunization history:: Adult Immunizations unknown, Flu vaccine is not up to date. - Social history:: Smoking status: Patient denies any tobacco usage or history of. Patient/guardian denies using alcohol, street drugs, The patient lives with family. - Family history:: not pertinent. ROS: 19:16 Constitutional: Negative for fever, chills, and weight loss, Eyes: Negative for injury, ma2 pain, redness, and discharge. 19:16 All other systems are negative. Exam: 19:16 Constitutional: This is a well developed, well nourished patient who is awake, alert, ma2 and in no acute distress. Head/Face: Normocephalic, atraumatic. Eyes: Pupils equal round and reactive to light, extra-ocular motions intact. Lids and lashes normal. Conjunctiva and sclera are non-icteric and not injected. Cornea within normal limits. Periorbital areas with no swelling, redness, or edema. ENT: Nares patent. No nasal discharge, no septal abnormalities noted. Tympanic membranes are normal and external auditory canals are clear. Oropharynx with no redness, swelling, or masses, exudates, or evidence of obstruction, uvula midline. Mucous membranes moist. Neck: Trachea midline, no thyromegaly or masses palpated, and no cervical lymphadenopathy. Supple, full range of motion without nuchal rigidity, or vertebral point tenderness. No Meningismus. Chest/axilla: Normal chest wall appearance and motion. Nontender with no deformity. No lesions are appreciated. Cardiovascular: Regular rate and rhythm with a normal S1 and S2. No gallops, murmurs, or rubs. Normal PMI, no JVD. No pulse deficits. Respiratory: Lungs have equal breath sounds bilaterally, clear to auscultation and percussion. No rales, rhonchi or wheezes noted. No increased work of breathing, no retractions or nasal flaring. Abdomen/GI: Soft, non-tender, with normal bowel sounds. No distension or tympany. No guarding or rebound. No evidence of tenderness throughout. Skin: Warm, dry with normal turgor. Normal color with no rashes, no lesions, and no evidence of cellulitis. MS/ Extremity: Pulses equal, no cyanosis. Neurovascular intact. Full, normal range of motion. Neuro: Awake and alert, GCS 15, oriented to person, place, time, and situation. Cranial nerves II-XII grossly intact. Motor strength 5/5 in all extremities. Sensory grossly intact. Cerebellar exam normal. Normal gait. Vital Signs: 18:11 BP 162 / 96 RA; Pulse 78; Resp 16; Temp 97.8; Pulse Ox 99% on R/A; Weight 53.52 kg; vg1 Height 5 ft. 1 in. (154.94 cm); Pain 6/10; 18:11 Body Mass Index 22.29 (53.52 kg, 154.94 cm) vg1 MDM: 19:07 Patient medically screened. ma2 19:16 Differential diagnosis: abrasion, sprain, strain. Data reviewed: vital signs, nurses ma2 notes. Counseling: I had a detailed discussion with the patient and/or guardian regarding: the historical points, exam findings, and any diagnostic results supporting the discharge/admit diagnosis, the presence of at least one elevated blood pressure reading (>120/80) during this emergency department visit, the need for outpatient follow up. Response to treatment: the patient's symptoms have resolved after treatment. Administered Medications: No medications were administered Disposition: 01/24/20 19:19 Discharged to Home. Impression: Pain in unspecified knee - bilateral . - Condition is Stable. - Discharge Instructions: Musculoskeletal Pain. - Medication Reconciliation Form, Thank You Letter, Antibiotic Education, Prescription Opioid Use form. - Follow up: Private Physician; When: Tomorrow; Reason: Continuance of care. Signatures: Aggie Mark MD MD ma2 Sindhu Balderas 2 Terra Fitzgerald RN RN vg1 Corrections: (The following items were deleted from the chart) 20:23 19:19 01/24/2020 19:19 Discharged to Home. Impression: Pain in unspecified knee - mw2 bilateral . Condition is Stable. Forms are Medication Reconciliation Form, Thank You Letter, Antibiotic Education, Prescription Opioid Use. Follow up: Private Physician; When: Tomorrow; Reason: Continuance of care. [email or web address]
== END 2020-01-24 20:23 | disposition home or self-care (01) ==
CPT/HCPCS: 99281